=== PATIENT | female | born 1950 | race Caucasian/White ===

== ENCOUNTER 2020-09-09 14:56 | Outpatient (CLI) | payer MEDICARE, OTHER, SELFPAY ==
--- NOTE | 2020-09-09 15:05 | MR_ITS ---
WS: [id number] MRI LUMBAR SPINE NONCONTRAST TECHNIQUE: Sagittal T1, T2 and STIR imaging. Axial T1 and T2 imaging. CLINICAL INFORMATION: BACK PAIN/SCIATICA COMPARISON: None. FINDINGS: Mild lumbar curve. No acute compression. Severe central canal stenosis L3-4 due to minimal disc bulgi ng with facet arthropathy and ligamentum flavum hypertrophy. Addition bilateral synovial cysts at thi s level contribute to central canal and subarticular recess stenosis. Left synovial cyst measures 6 m m and right synovial cyst measures 4.7 mm. L1-L2: Normal. L2-L3: Mild disc bulging. Moderate facet arthropathy. Slight narrowing of the subarticular recess riccardo aterally. Spinal canal and foramen are patent. L3-L4: Severe central canal stenosis due to disc bulging with moderate facet arthropathy ligamentum f lavum hypertrophy. Impingement traversing L4 nerve roots. Synovial cysts contribute to stenosis descr ibed above. Mild right and no significant left foraminal narrowing. L4-L5: Slight anterolisthesis L4 on L5. Mild disc bulging with impingement traversing left L5 nerve r oot. Recommend correlation for left L5 nerve root symptoms. Moderate central canal stenosis. Moderate to advanced facet arthropathy. Foramen are patent. L5-S1: Mild annular bulging with slight effacement of ventral thecal sac. Spinal canal and foramen ar e patent. Mild facet arthropathy. Visualized pelvic bony structures: Normal. Paravertebral soft tissues: Normal. MR/MR lumbar spine wo con* [id number] IMPRESSION: 1. Mild lumbar curve. No acute compression. 2. Severe central canal stenosis L3-4 due to minimal disc bulging with facet a rthropathy and ligamentum flavum hypertrophy. Small bilateral synovial cysts co ntributes to stenosis described above. 3. Mild central canal stenosis L2-3 and moderate central canal stenosis L4-5. Impingement left L4-5 subarticular recess and traversing left L5 nerve root.
== END 2020-09-09 14:57 | disposition home or self-care (01) ==
LOC: RADWPI 15:01
PROVIDERS: PCP Nurse Practitioner Family; Visit Provider Nurse Practitioner Family
DX: M54.30 Sciatica, unspecified side (principal); M48.061 Spinal stenosis, lumbar region without neurogenic claudication; M71.38 Other bursal cyst, other site
CPT/HCPCS: 72148

== ENCOUNTER 2021-05-12 07:45 | Outpatient (CLI) | payer MEDICARE, OTHER, SELFPAY ==
--- NOTE | 2021-05-12 07:54 | MM_ITS ---
WS: [id number] Exam: [place] [id number] Date/Time of Exam: 05/12/2021 7:59 AM Reason For Exam: SCREENING VIEWS: MLO and CC views both breasts. Comparison made with prior exam of 05/12/2015, 11/06/2017, and 04/19/2019.. Findings: There was no sign of mass, architectural distortion or suspicious calcification in either breast. Fa tty MM/[place] [id number] Impression: BI-RADS: 2-Benign FOLLOW-UP: 1 Year Follow-up This mammogram was also analyzed by the Computer Aided Detection System R2 Imag e [employer].
--- NOTE | 2021-05-12 08:23 | XR_ITS ---
WS: [id number] DEXA (DUAL ENERGY X-RAY ABSORPTIOMETRY) Bone mineral density was performed using a [employer] machine. HISTORY: MENOPAUSE, POST MENOPAUSAL COMPARISON: None available. Lumbar spine BMD (L1-L4): 1.212 g/cm2 T score: 0.3 Z score: 1.9 Total hip BMD: Left: 0.992 g/cm2. T score: -0.1 Z score: 1.3 Right: 0.974 g/cm2. T score: -0.3 Z score: 1.1 10 year probability of a major osteoporotic fracture is 9%. XR/XR DEXA axial skeleton* [id number] IMPRESSION: NORMAL BONE MINERAL DENSITY based upon the WHO classification for females.
== END 2021-05-12 07:46 | disposition home or self-care (01) ==
LOC: RADSHAW 07:53
PROVIDERS: PCP Nurse Practitioner Family; Visit Provider Nurse Practitioner Family
DX: Z12.31 Encounter for screening mammogram for malignant neoplasm of breast (principal); Z78.0 Asymptomatic menopausal state
CPT/HCPCS: 77067; 77080

== ENCOUNTER 2022-03-15 11:10 | Outpatient (CLI) | payer MEDICARE, OTHER, SELFPAY ==
--- NOTE | 2022-03-15 11:26 | XR_ITS ---
WS: [id number] LEFT KNEE: 3 VIEW(S) TECHNIQUE: AP, oblique(s) and lateral. HISTORY: ACUTE PAIN OF LEFT KNEE COMPARISON: None available. No fracture or dislocation. Mild narrowing of the patellofemoral and medial compartments with small marginal osteophytes. No joint effusion. No soft tissue abnormality. XR/XR knee LT 3V* [id number] IMPRESSION: Mild patellofemoral and medial compartment osteoarthritic changes.
== END 2022-03-15 11:11 | disposition home or self-care (01) ==
LOC: RAD 11:14
PROVIDERS: PCP Nurse Practitioner Family; Visit Provider Nurse Practitioner Family
DX: M25.562 Pain in left knee (principal)
CPT/HCPCS: 73562

== ENCOUNTER → 2022-05-02 09:39 | Outpatient (BNVA) | payer MEDICARE, OTHER, SELFPAY | PROVIDERS: PCP Nurse Practitioner Family; Referring Provider Nurse Practitioner Family; Visit Provider Student in an Organized Health Care Education/Training Program | DX: M17.12 Unilateral primary osteoarthritis, left knee (principal); E11.9 Type 2 diabetes mellitus without complications; Z79.84 Long term (current) use of oral hypoglycemic drugs; M25.562 Pain in left knee | CPT/HCPCS: 20610; 73560; 73565; 99203; J3301 ==

== ENCOUNTER → 2022-06-13 07:49 | Outpatient (BNVA) | payer MEDICARE, OTHER, SELFPAY | PROVIDERS: PCP Nurse Practitioner Family; Visit Provider Student in an Organized Health Care Education/Training Program | DX: M17.12 Unilateral primary osteoarthritis, left knee (principal) | CPT/HCPCS: 99213 ==

== ENCOUNTER → 2022-11-24 07:37 | Outpatient (BNVA) | payer MEDICARE, OTHER, SELFPAY | PROVIDERS: PCP Nurse Practitioner Family; Visit Provider Student in an Organized Health Care Education/Training Program | DX: M17.12 Unilateral primary osteoarthritis, left knee (principal); Z71.89 Other specified counseling | CPT/HCPCS: 20610; 99214; J7326 ==

== ENCOUNTER → 2023-02-23 07:51 | Outpatient (BNVA) | payer MEDICARE, OTHER, SELFPAY | PROVIDERS: PCP Nurse Practitioner Family; Visit Provider Student in an Organized Health Care Education/Training Program | DX: M17.12 Unilateral primary osteoarthritis, left knee (principal) | CPT/HCPCS: 99213 ==

== ENCOUNTER 2023-05-01 08:30 | Outpatient (CLI) | payer MEDICARE, OTHER, SELFPAY ==
--- NOTE | 2023-05-01 08:36 | MM_ITS ---
WS: [id number] SCREENING DIGITAL TOMOSYNTHESIS MAMMOGRAM WITH CAD HISTORY: SCREENING COMPARISON: 05/12/2021 and 04/19/2019 Bilateral CC and MLO with tomosynthesis views submitted. Synthetic mammography reviewed. Computer aid ed detection analyzed. Breast composition: There are scattered areas of fibroglandular density. No suspicious masses, microc alcifications or architectural distortion. Benign arterial calcifications in each breast. IMPRESSION: MM/[place] [id number] BI-RADS: 2-Benign FOLLOW UP: 1 Year Follow-up
== END 2023-05-01 08:31 | disposition home or self-care (01) ==
LOC: RAD 08:33 → MOBLMAM 08:35
PROVIDERS: PCP Nurse Practitioner Family; Visit Provider Nurse Practitioner Family
DX: Z12.31 Encounter for screening mammogram for malignant neoplasm of breast (principal)
CPT/HCPCS: 77063; 77067

== ENCOUNTER → 2023-05-30 09:14 | Outpatient (BNVA) | payer MEDICARE, OTHER, SELFPAY | PROVIDERS: PCP Nurse Practitioner Family; Visit Provider Student in an Organized Health Care Education/Training Program | DX: M17.12 Unilateral primary osteoarthritis, left knee (principal) | CPT/HCPCS: 20610; 99213; J7318 ==

== ENCOUNTER → 2023-12-05 09:22 | Outpatient (BNVA) | payer MEDICARE, OTHER, SELFPAY | PROVIDERS: PCP Nurse Practitioner Family; Visit Provider Student in an Organized Health Care Education/Training Program | DX: M17.12 Unilateral primary osteoarthritis, left knee (principal) | CPT/HCPCS: 20610; 73560; 73565; 99213; J3301 ==

== ENCOUNTER → 2024-02-20 14:03 | Outpatient (BNVA) | payer MEDICARE, OTHER, SELFPAY | PROVIDERS: PCP Nurse Practitioner Family; Visit Provider Student in an Organized Health Care Education/Training Program | DX: M17.12 Unilateral primary osteoarthritis, left knee (principal) | CPT/HCPCS: 99214 ==

== ENCOUNTER → 2024-04-23 14:35 | Outpatient (BNVA) | payer MEDICARE, OTHER, SELFPAY | PROVIDERS: PCP Nurse Practitioner Family; Visit Provider Student in an Organized Health Care Education/Training Program | DX: M17.12 Unilateral primary osteoarthritis, left knee (principal); M25.562 Pain in left knee; M25.561 Pain in right knee | CPT/HCPCS: 73560; 73565 ==

== ENCOUNTER 2024-05-13 09:30 | Outpatient (CLI) | payer MEDICARE, SELFPAY ==
--- NOTE | 2024-05-13 09:00 | CT_ITS ---
WS: [id number] CT LEFT knee, noncontrast HISTORY: M17.12 - Unilateral primary osteoarthritis, left knee TECHNIQUE: Protocol for [facility] total knee replacement has been obtained. This includes axial imaging th rough the LEFT hip, LEFT knee and LEFT ankle. DLP: 783.44 mGy.cm COMPARISON: Radiograph 04/23/2024 Pelvis: No bone destruction. Mild narrowing of the hip joints. LEFT knee: Mild tricompartment osteoarthritis. No destructive bone lesions. Well-circumscribed calcif ications posterior to the knee joint. These may be loose bodies. Negative RIGHT ankle. CT/CT knee LT [facility] [id number] IMPRESSION: CT imaging provided for [facility] robotic total knee replacement.
== END 2024-05-13 09:31 | disposition home or self-care (01) ==
PROVIDERS: PCP Nurse Practitioner Family; Visit Provider Student in an Organized Health Care Education/Training Program
DX: M17.12 Unilateral primary osteoarthritis, left knee (principal); Z01.818 Encounter for other preprocedural examination; E11.9 Type 2 diabetes mellitus without complications
CPT/HCPCS: 36415; 73700; 80053; 81003; 81015; 83036; 85025; 87086

== ENCOUNTER 2024-05-13 11:51 | Outpatient (CLI) | payer MEDICARE, OTHER, SELFPAY ==
[2024-05-13 12:29] LABS: Charge for UA Resulting for Rev
[2024-05-13 12:33] LABS: Basophils # 0.1 10^3/uL (0.0-0.1); Basophils % 0.9 %; Eosinophils # 0.2 10^3/uL (0.0-0.8); Eosinophils % 2.4 %; Hematocrit 41.1 % (36-47); Lymphocytes # 2.6 10^3/uL (0.8-4.8); Lymphocytes % 32.9 %; Mean Corpuscular HGB Conc 34.1 g/dL (30-55); Mean Corpuscular Hemoglobin 31.1 pg (27-33); Mean Corpuscular Volume 91.3 fl (85-98); Mean Platelet Volume 8.7 fL (7.4-10.4); Monocytes # 0.6 10^3/uL (0.2-0.9); Monocytes % 7.4 %; Neutrophils # 4.52 10^3/uL (1.8-7.7); Neutrophils % 56.3 %; Nucleated Red Blood Cells % 0 %; Platelet Count 319 10^3/cmm (157-399); Red Cell Distribution Width 11.4 % (12.1-15.1); White Blood Count 8.02 10^3/uL (3.29-11.43)
[2024-05-13 12:35] LABS: Bilirubin Urine Negative (Negative); Blood Urine Negative (Negative); Glucose Urine UA Negative (Normal); Ketones Urine Negative (Negative); Leukocyte Esterase Urine Trace (Negative); Nitrate Urine Positive (Negative); Protein Urine Negative (Negative); Specific Gravity, Urine 1.015 (1.005-1.030); Urine Appearance Clear (CLEAR); Urine Color Yellow (Yellow); pH Urine 5.5 (5-7)
[2024-05-13 12:37] LABS: Bacteria Urine 4+ /hpf; Hyaline Casts Urine 0.81 /lpf; RBC Urine 0-2 /hpf (0-2); Squamous Epithelial Cell Urine 0-5 /hpf (0-5)
[2024-05-13 12:50] LABS: Add Urine Culture? Yes
[2024-05-13 12:57] LABS: Estmated Average Glucose 180; Hemoglobin A1C 7.9 % (4.0-6.0)
[2024-05-13 12:59] LABS: Alanine Aminotransferase 25 U/L (0-33); Albumin Level 4.4 g/dL (3.5-5.2); Alkaline Phosphatase 59 U/L (35-105); Anion Gap 14.8 (5-19); Aspartate Amino Transferase 19 U/L (0-32); Blood Urea Nitrogen 13 mg/dL (8-23); Calcium 9.7 mg/dL (8.5-10.5); Carbon Dioxide 28 mmol/L (22-29); Chloride 98 mmol/L (98-107); Globulin 2.8 g/dL (1.3-4.6); Glucose 193 mg/dL (65-115); Osmolality Calculated 287 mOsm/kg (285-295); Potassium 4.8 mmol/L (3.5-5.1); Sodium 136 mmol/L (136-145); Total Bilirubin 0.5 mg/dL (0.15-1.2); Total Protein 7.2 g/dL (6.6-8.7)
== END 2024-05-13 11:52 | disposition home or self-care (01) ==
LOC: LAB 11:52
PROVIDERS: PCP Nurse Practitioner Family; Visit Provider Student in an Organized Health Care Education/Training Program
DX: Z01.818 Encounter for other preprocedural examination (principal); E11.9 Type 2 diabetes mellitus without complications
CPT/HCPCS: 36415; 80053; 81003; 81015; 83036; 85025; 87086

== ENCOUNTER → 2024-05-21 08:14 | Outpatient (BNVA) | payer MEDICARE, OTHER, SELFPAY | PROVIDERS: PCP Nurse Practitioner Family; Visit Provider Family Medicine | DX: Z01.818 Encounter for other preprocedural examination (principal); I49.8 Other specified cardiac arrhythmias; I45.10 Unspecified right bundle-branch block | CPT/HCPCS: 93005 ==

== ENCOUNTER 2024-05-24 13:52 | Outpatient (CLI) | payer MEDICARE, OTHER, SELFPAY ==
[2024-05-24 14:19] LABS: Bilirubin Urine Negative (Negative); Blood Urine Negative (Negative); Glucose Urine UA Negative (Normal); Ketones Urine Negative (Negative); Leukocyte Esterase Urine 1+ (Negative); Nitrate Urine Negative (Negative); Protein Urine Negative (Negative); Specific Gravity, Urine 1.019 (1.005-1.030); Urine Appearance Cloudy (CLEAR); Urine Color Yellow (Yellow)
[2024-05-24 14:45] LABS: Add Urine Culture? No; Bacteria Urine 1+ /hpf; RBC Urine RARE /hpf (0-2)
== END 2024-05-24 13:53 | disposition home or self-care (01) ==
LOC: LAB 13:53
PROVIDERS: PCP Nurse Practitioner Family; Visit Provider Family Medicine
DX: Z01.818 Encounter for other preprocedural examination (principal)
CPT/HCPCS: 81001

== ENCOUNTER 2024-05-27 17:30 | Inpatient (IN) | payer MEDICARE, OTHER, SELFPAY ==
[2024-05-27] VITALS (14 sets, daily range): BP systolic 123–177; BP diastolic 68–92; PULSE 68–96; RESP 16–20; TEMP 36.4–36.9; O2SAT 94–97; BMI 26.9
--- NOTE | 2024-05-27 | XR_ITS ---
WS: [id number] XR knee LT 4V [id number] REASON FOR EXAM: ADDITIONAL POST OPERATIVE IMAGES FINDINGS: Total left knee arthroplasty. Prosthetic components are intact and in proper position and alignment. XR/XR knee LT 4V [id number] IMPRESSION: Total left knee arthroplasty without abnormality.
[2024-05-27 12:54] LABS: Charge for UA Resulting for Rev
[2024-05-27 12:56] LABS: Bilirubin Urine Negative (Negative); Blood Urine Negative (Negative); Glucose Urine UA Negative (Normal); Ketones Urine Negative (Negative); Leukocyte Esterase Urine Negative (Negative); Nitrate Urine Negative (Negative); Protein Urine Trace (Negative); Specific Gravity, Urine 1.017 (1.005-1.030); Urine Appearance Cloudy (CLEAR); Urine Color Yellow (Yellow); pH Urine 5.5 (5-7)
[2024-05-27 13:00] LABS: Bacteria Urine None Seen /hpf; Hyaline Casts Urine 0-4 /lpf; RBC Urine 0-2 /hpf (0-2); Squamous Epithelial Cell Urine 0-5 /hpf (0-5); WBC Urine 0-5 /hpf (0-5)
[2024-05-27] MEDS: acetaminophen 1,000 MG/100 ML PIGGYBACK 400 MG IV ×2 (13:03→21:17)
[2024-05-27 13:16] LABS: Basophils # 0.1 10^3/uL (0.0-0.1); Basophils % 1.6 %; Eosinophils # 0.2 10^3/uL (0.0-0.8); Hematocrit 41.2 % (36-47); Lymphocytes # 2.6 10^3/uL (0.8-4.8); Lymphocytes % 40.9 %; Mean Corpuscular HGB Conc 34.5 g/dL (30-55); Mean Corpuscular Hemoglobin 30.8 pg (27-33); Mean Corpuscular Volume 89.4 fl (85-98); Mean Platelet Volume 8.6 fL (7.4-10.4); Monocytes # 0.9 10^3/uL (0.2-0.9); Monocytes % 13.7 %; Neutrophils # 2.53 10^3/uL (1.8-7.7); Neutrophils % 40.5 %; Nucleated Red Blood Cells % 0 %; Platelet Count 333 10^3/cmm (157-399); Red Blood Count 4.61 10^6/uL (3.85-5.65); Red Cell Distribution Width 11.7 % (12.1-15.1); White Blood Count 6.26 10^3/uL (3.29-11.43)
--- NOTE | 2024-05-27 13:21 | P.ANESASSM_ITS ---
Pre-Anesthetic Assessment Height/Weight: Height 1.5 m Weight 60.328 kg Temp Pulse Resp BP Pulse Ox O2 Del Method 98 F 68 16 177/83 97 Room Air 05/27/24 12:30 05/27/24 12:30 05/27/24 12:30 05/27/24 12:30 05/27/24 12:30 05/27/24 12:38 Preop Diagnosis: left knee degenerative joint disease Operation Date: 05/27/24 14:45 Proposed Procedures p Russell Robot Total Knee Arthroplasty(Left) - Cesar Partida DO Familial anesthetic complications: none Was Beta Barrett taken within 24 hours: N/A Was Clonidine taken within 24 hours: N/A Last intake: Intake Last Liquid Date 05/26/24 Last Liquid Time 21:00 Last Solid Date 05/26/24 Last Solid Time 19:00 Social No alcohol and No tobacco Exam alert, oriented x 3, clear to auscultation bilaterally and regular rate & rhythm Airway Submandibular: within normal limits Cervical ROM: within normal limits Mallampati: Class II Dentition: full History/ROS No significant history except as noted Pulmonary None reported 4 mets CV/HEM Hypertension None reported Hepatic None reported GI None reported Metabolic Diabetes Mellitus NIDDM [facility] Osteoarthritis/DJD Neuropsych None reported Anesthetic Plan ASA status: 3 Anesthesia: Eval. for regional block Other: Spinal with adductor canal block Risk of > 500 ml blood loss (7ml/kg in children): No Medications/Allergies Home Medications Medication Instructions Recorded Confirmed Last Taken Type acetaminophen 300 mg-codeine 30 mg 1 tab PO BID PRN Pain 10/31/19 05/24/24 Unknown History tablet (Tylenol-Codeine #3) alprazolam 1 mg tablet 1 mg PO DAILY PRN Anxiety 10/31/19 05/24/24 05/26/24 History glipizide 10 mg tablet 10 mg PO TID 10/31/19 05/24/24 05/26/24 History metformin 500 mg tablet 1,000 mg PO BID 10/31/19 05/24/24 05/26/24 History chlorzoxazone 500 mg tablet 500 mg PO TID 05/30/23 05/27/24 05/26/24 History levothyroxine 100 mcg tablet 100 mcg PO DAILY 05/21/24 05/24/24 05/27/24 History losartan 50 mg tablet 50 mg PO DAILY 05/21/24 05/24/24 05/26/24 History lovastatin 20 mg tablet 20 mg PO DAILY 05/21/24 05/24/24 05/24/24 History metoprolol succinate 100 mg 100 mg PO DAILY 05/21/24 05/24/24 05/23/24 History tablet,extended release 24 hr sulfamethoxazole 800 1 tab PO BID 5 days #10 tabs 05/21/24 05/24/24 05/24/24 Rx mg-trimethoprim 160 mg tablet (Bactrim DS) Allergies Allergy/AdvReac Type Severity Reaction Status Date / Time levofloxacin Allergy hives Verified 05/21/24 08:46 naproxen [From Aleve] Allergy hives Verified 05/21/24 08:45 Penicillins Allergy hive Verified 05/21/24 08:45 [facility] Anesthesia Medical History Degenerative joint disease of left knee Hypothyroidism Hypertension Type 2 diabetes mellitus Surgical History History of hysterectomy (~1983) Patient reports was due to an class V Pap. Hx of tubal ligation (~1969) Family History Mother Cancer colon cancer Father Cancer colon cancer Hypertension Thyroid disease Daughter Thyroid disease Social History Smoking and tobacco/nicotine status: never used tobacco/nicotine Alcohol intake: current Alcohol intake frequency: holidays/special occasions only Substance/Drug Use: never Data Anesthesia 05/27/24 13:05 05/27/24 13:05 Short CBC 05/27/24 Range/Units 13:05 WBC 6.26 (3.29-11.43) 10^3/uL Hgb 14.20 (11.27-16.99) g/dL Hct 41.2 (36-47) % MCV 89.4 (85-98) fl Plt Count 333 (157-399) 10^3/cmm Neut % (Auto) 40.5 % Neut # (Auto) 2.53 (1.8-7.7) 10^3/uL Urine 05/27/24 Range/Units 12:45 Urine Color Yellow (Yellow) Urine Appearance Cloudy A (CLEAR) Urine pH 5.5 (5-7) Ur Specific [place] 1.017 (1.005-1.030) Urine Protein Trace A (Negative) Urine Glucose (UA) Negative (Normal) Urine Ketones Negative (Negative) Urine Nitrate Negative (Negative) Urine Bilirubin Negative (Negative) Ur Leukocyte Esterase Negative (Negative) Cardiac Studies: 2 No Data to Display
[2024-05-27 13:25] LABS: UA Slide Review UA Slide Review Perf
[2024-05-27] MEDS: vancomycin 1,000 MG in sodium chloride 0.9% 250 ML 250 MG IV (13:30)
--- NOTE | 2024-05-27 13:31 | W.PM.OPSFHP ---
Same Day Surgery H&P Indication for Procedure/HPI DATE OF PROCEDURE: May 27, 2024 CHIEF COMPLAINT/INDICATIONFOR SURGICAL PROCEDURE: Left knee degenerative joint disease PREOP DIAGNOSIS: left knee degenerative joint disease PLANNED PROCEDURE: Operation Date: 05/27/24 14:45 Proposed Procedures p Russell Robot Total Knee Arthroplasty(Left) - Cesar Partida DO Medications/Allergies* Home Medications Medication Instructions Recorded Confirmed Type acetaminophen 300 mg-codeine 30 mg 1 tab PO BID PRN Pain 10/31/19 05/24/24 History tablet (Tylenol-Codeine #3) alprazolam 1 mg tablet 1 mg PO DAILY PRN Anxiety 10/31/19 05/24/24 History glipizide 10 mg tablet 10 mg PO TID 10/31/19 05/24/24 History metformin 500 mg tablet 1,000 mg PO BID 10/31/19 05/24/24 History chlorzoxazone 500 mg tablet 500 mg PO TID 05/30/23 05/27/24 History levothyroxine 100 mcg tablet 100 mcg PO DAILY 05/21/24 05/24/24 History losartan 50 mg tablet 50 mg PO DAILY 05/21/24 05/24/24 History lovastatin 20 mg tablet 20 mg PO DAILY 05/21/24 05/24/24 History metoprolol succinate 100 mg 100 mg PO DAILY 05/21/24 05/24/24 History tablet,extended release 24 hr Allergies/Adverse Reactions Allergy/AdvReac Type Severity Reaction Status Date / Time levofloxacin Allergy hives Verified 05/21/24 08:46 naproxen [From Aleve] Allergy hives Verified 05/21/24 08:45 Penicillins Allergy hive Verified 05/21/24 08:45 Pertinent History/Comorbid Conditions* Medical History (Updated 05/02/22 @ 15:55 by Cesar Partida DO) Degenerative joint disease of left knee Hypothyroidism Hypertension Type 2 diabetes mellitus Surgical History (Updated 11/04/19 @ 18:47 by Marco Grier MD) History of hysterectomy (~1983) Patient reports was due to an class V Pap. Hx of tubal ligation (~1969) Family History (Updated 10/31/19 @ 10:31 by Lucinda Irvin LPN) Cancer Mother colon cancer Father colon cancer Hypertension Father Thyroid disease Father Daughter Social History Smoking and tobacco/nicotine status: never used tobacco/nicotine Alcohol intake: current Alcohol intake frequency: holidays/special occasions only Substance/Drug Use: never Pertinent Exam Findings alert, oriented x 3, operative site marked and procedure specific exam findings Please refer to detailed orthopedic examination on 04/23/2024: Orthopedic specific examination : Left knee there are no gross deformities of the hips or ankles. The range of motion of both hips and ankles are normal and no tenderness to palpation. mild left knee effusion. tenderness to palpation over the medial and lateral compartment. Patient has full range of motion of the left knee with crepitation noted. Tenderness to palpation over the retropatellar space with significant crepitus underneath the patella and positive patellar grind negative Feliz's, negative Shayy's but pain noted no palpable click. Stable to varus valgus stress. 5 degree varus deformity correctable on examination, left lower extremity is warm and well-perfused. Gross motor and sensation intact light touch left lower extremity. Recommendations Surgery/Procedure today Other Plans: Plan to proceed to the OR today for left total knee arthroplasty?Russell robotic assisted. Patient at this point time is clear the preoperative clearance process her A1c is 7.9 and below 8. Her blood sugars controlled this morning. Her UA has been rechecked as she was treated for a UTI and the recheck was with a Fragoso catheterization and UA is clean and free of any UTI. At this point in time patient understands the ins and outs procedure risk benefits complication alternatives of surgery through shared decision-making she is been medically optimized and elects to proceed with surgical intervention for left total knee arthroplasty Russell robotic assisted. Patient understands and agrees with current plan. Questions answered. Coding Level of Care Code Acute Code for Theodorag Von
--- NOTE | 2024-05-27 13:45 | ANES.PROC ---
Anesthesia Procedures Procedure/Date: 05/27/24 Nerve Block ^: Nerve Block 1: Main Anesthesia: spinal anesthesia block Time Out Performed: Yes Consent: requested by attending/covering physician, from patient, from other, risks and benefits reviewed and patient agrees to proceed Nerve block location: adductor canal (L) Anesthesia monitors applied: pulse oximetry, EKG, BP cuff and oxygen Nerve block position: supine Anesthetic Used: ropivicaine 0.5% (30 ml) and with decadron (4 mg) Ultrasound used to: recognize landmarks Nerve Stimulator Used?: No Interscalene/Femoral BLK: 4 stimuplex 21 g needle used for position and inplane approach, visualize local anesthetic spread and no vascular puncture identified Injection: neg aspiration of heme Patient Tolerated Procedure: well Complications: none
[2024-05-27 14:11] LABS: Anion Gap 15.2 (5-19); Blood Urea Nitrogen 15 mg/dL (8-23); Carbon Dioxide 25 mmol/L (22-29); Chloride 96 mmol/L (98-107); Creatinine Clr Calc Pharmacy 60.5375; Glucose 183 mg/dL (65-115); Osmolality Calculated 278 mOsm/kg (285-295); Potassium 5.2 mmol/L (3.5-5.1); Sodium 131 mmol/L (136-145)
[2024-05-27] MEDS: sodium chloride 0.9% 1,000 ML 30 ML IV (14:18)
[2024-05-27] MEDS: tranexamic acid 1,000 mg/10mL SDV 1000 MG IV (14:20)
[2024-05-27] MEDS: ROPivacaine 0.2% Premix 100 mL 200 MG INTRA-ARTI (14:44)
[2024-05-27] MEDS: EPINEPHrine 1 mg/mL INJ XX (14:44)
[2024-05-27] MEDS: tranexamic acid 1,000 mg/10mL SDV 1000 MG XX (14:44)
[2024-05-27] MEDS: ketorolac 30 mg/mL INJ XX (14:44)
[2024-05-27] MEDS: vancomycin 1,000 MG SDV 1000 MG XX (14:47)
[2024-05-27] MEDS: clindamycin 900 MG/50 ML PREMIX 100 MG IV ×2 (14:48→23:20)
--- NOTE | 2024-05-27 15:26 | XR_ITS ---
WS: [id number] XR knee LT 3V* [id number] REASON FOR EXAM: PRE OP LT KNEE FINDINGS: Distal femur and proximal tibia ostomy The preparation for total left knee arthroplasty. XR/XR knee LT 3V* [id number] IMPRESSION: Femur and tibial bone preparation for total left knee arthroplasty.
--- NOTE | 2024-05-27 16:35 | PM.OP ---
Operative Report Date of procedure: May 27, 2024 Surgeon: Cesar Partida DO Search Engine Optimization Consultant: Felipe Partida PA-C: PA was necessary for assistance in this case with leg positioning retraction and protection of neurovascular structures as well as assistance in implantation wound closure and dressing application. Procedure: Preoperative diagnosis: Left knee degenerative joint disease Post-op diagnosis: Left knee degenerative joint disease Left proximal tibia intraoperative incomplete fracture Procedure done: Left total knee arthroplasty, cemented?robotic assisted Russell Left proximal tibia open reduction internal fixation Implants: Shanae triathlon size 3 femur CR cemented?left Shanae triathlon size? 2tibia universal baseplate cemented, with extended 50 mm cemented stem Lexington triathlon symmetric patella size 31 mm Lexington triathlon polyethylene 9mm [place] 3.5 mm x 40 mm nonlocking cortical screw Surgeon: Cesar Partida DO Estimated blood?loss: 25 mL Tourniquet 110min IV fluids: 1500 mL Urine output: 150 mL Complications: Intraoperative incomplete proximal tibia fracture of the anterior cortex, prior to implantation this was subsequently clamped lag screw placed and then a longer tibial stem was cemented into place Condition: stable Disposition: floor Brief History: Patient is a 74-year-old female with with chronic?left knee degenerative joint disease.? Patient has been worked up in the outpatient setting in the orthopedic office at this point time through shared decision making given? [id number] arthritis as well as failed conservative treatment, and pt would?like to proceed with a?left total knee arthroplasty.? Through shared decision making elected to proceed with surgical intervention for?left total knee arthroplasty.? We talked about continued conservative treatment and surgical intervention as far as the risk benefits complications alternatives surgical and nonsurgical treatment options.? At this point time understanding patient risks with surgery he agrees to proceed with surgical intervention.? Once again? risk with surgery include but are not?limited to make it better make it worse blood clot, heart attack, stroke, on the table, infection, injury to nerves or vessels, persistent pain, arthrofibrosis, implant failure.? Understanding these risks patient agrees to proceed with surgical intervention consent was obtained in the office.? All questions answered. Procedure: Patient was seen and evaluated in the preoperative holding area.? Consent was reviewed and signed with patient with plan for?left total knee arthroplasty.? All questions answered.? Correct extremity marked.? Patient seen and evaluated by the anesthesia department and once cleared for surgery was taken back to the operative suite.? Patient was placed into a supine position on the OR table.? All bony prominences were well-padded.? Patient was appropriately secured to the bed.? Patient underwent anesthesia per the anesthesia department.? Patient received spinal anesthesia and? Fragoso catheter was placed.? A nonsterile tourniquet was applied to the?left thigh.? At this point in time a final timeout performed.? Patient received appropriate preoperative antibiotics and TXA. Next the?left?lower extremity was then prepped and draped in standard orthopedic fashion. Esmarch tourniquet was used exsanguinate the?left?lower extremity.? Tourniquet was insufflated to 250 mmHg. A standard anterior incision was made over midline of the knee.? Sharp scalpel excision through skin and subcutaneous tissue full-thickness skin flaps were made.? Fascia was elevated off of the extensor retinaculum was stable with medial parapatellar arthrotomy was then made.? The performed standard sequential releases..? Immediately on entry into the joint patient was found to have severe eburnated bone and tricompartmental arthritic changes noted.? With significant osteophyte formation.? Next the the patella was then stuffed and the knee was then flexed.?? Susannah was placed superiorly around the anterior aspect of the femur this was freed of synovium and I subsequently then placed by 2 femur pins to establish my femur arrays for the Russell robot.? These were then placed bicortically and? femur array was then appropriately secured with appropriate visualization.? Next attention was turned towards the tibial rays.? These were then drilled sequentially bicortically in parallel fashion and intraincisional.? I then placed my guide as well as my tibial array on in place.? This was appropriately secured and had excellent visualization with the Russell robot.? Next the tibial checkpoint as well as femur checkpoint were then placed.? At this point time I then subsequently established my head center as well as my medial?lateral malleoli as well as my checkpoints.? Next utilizing standard Russell technology I then mapped out the appropriate points and confirmation points around the femur as well as the tibia in standard fashion.? Once this was then done I then removed all osteophytes in preparation for dynamic testing.? All osteophytes were removed as well as I removed the ACL and the PCL was excised due to its significant tearing and degeneration noted.? At this point time the knee was brought into full extension and we performed our standard evaluation of our gap balancing stressing his?ligaments and extension as well as flexion appropriate adjustments were made to have appropriate gap balancing in both flexion and extension.? This plan for final counts.? We get a preoperative plan evaluating our implants which was a size 3 femur and a size 2 tibia.? Next we brought in the BATTERIES [employer] BANDS robot and sequentially made our femur cuts.? All excess bony cuts were then removed.? Finally we made our tibial cut.? Once this was done a standard PCL retractor was then placed into this position I excised the medial and?lateral meniscus.? The tibial cut was then subsequently removed all excess bony debris was removed.? I then utilized a?lamina supervisor felling bucking and remove the posterior osteophytes.? At this point time sized the tibia and confirmed this was a size 2.? I utilized our blunt probe to establish rotation of tibial implant.? Once this was done I then placed my tibia size 2 trial in appropriate position and then subsequently placed tibial pins to hold this into place placed a size 9 mm poly as well as a size 3 femur which was appropriately impacted in place knee was then subsequently brought into extension. This was found to be tight in extension but symmetrically balanced in flexion as a result I subsequently removed the implants brought back in the robot and cut an additional millimeter off of the distal femur cut and then recapped the 4 cuts along the femur then replaced the size 2 tibia, size 3 femur and a 9 mm poly and the trials were then assessed,? this was stable with varus valgus stress in extension as well as had symmetrical translation when brought into flexion demonstrating symmetrical gaps. I had excellent balance gaps in flexion and extension with varus and valgus stresses.? At this point I was satisfied with these implants these were then verified and opened on the back table size 2 tibia, size 3 femur,? size 9 mm polythickness.? We did confirm appropriate gap balancing and stresses as well as alignment utilizing? BATTERIES [employer] BANDS and were satisfied with this plan.? ?At this point time with my trials in place I then towel clip the patella everted this made appropriate measurements subsequently utilizing freehand technique performed by patellar resurfacing this was confirmed to be appropriate resection and subsequently sized to be a 31 mm symmetric.? My drill peg guides were then clamped and appropriate position and appropriate position in the patella for appropriate tracking and parallel with the joint.? Pegs were drilled trial implant was placed and the knee was then subsequently ranged and found to have excellent patellar tracking.? Femur pegs were then drilled.? All checkpoints as well as guidepins and arrays were removed and appropriate counts made.?Satisfied with our tibial placement rotation I then utilized the keel punch and prepped the tibia.? During my boss ream this was satisfactory and had no issues and was intramedullary when I did the keel punch as I was impacting this there was noticed to be an incomplete fracture along the anterior medial border of the tibia that communicated to the intra-articular pin sites this was apparently likely due to patient's softer bone quality as result I did not want fracture cement extravasation and as a result all the trial implants removed satisfied with these implants. I then brought in fluoroscopic imaging there was no evidence on x-ray of fracture pattern and there was no evidence distally into the shaft or out posteriorly., But this was visible to my eye as a result I utilized a [id number] tenaculum reduction clamp clamp the fracture site closed keeping this with excellent fracture site opposition I then subsequently between the pin sites and staying anterior within the anterior cortex of the bone which was patient given her smaller bone size did have a small cord or I subsequently had open [place] is 3.5mm screw set and then subsequently in lag by technique design drilled and overdrilled and then subsequently measured a single 3.5 mm lag screws this was all patient's bone would accommodate while this was being held and clamped I then subsequently advanced the 3.5 mm appropriately measured screw which was 40 mm advanced this and had good fixation. At this point I left the clamp in place as well as with my screw holding the fracture site as well and then subsequently had my diploma dental assistant mix the cement. At this point time all of our trial implants had been removed.? The wound bed? was thoroughly irrigated and dried and prepped for cementation.? Cement was mixed on the back table.? Once cement was ready this was then covered onto the tibia and the tibial baseplate was then impacted and all excess cement was removed. I did elect to utilize a longer tibial stem and had my diploma dental assistant attach the 50 mm length stem to add fixation distally past the side of the fracture. Next the polyethylene was then impacted into place on the tibial baseplate.? Next cement was placed onto the femur as well as under the femur implants and impacted in to place and all excess cement was extruded and removed.? Knee was taken into full extension? to clear all excess cement was removed.? Warm saline was placed over the joint.? I then towel clip patella and dried for cementation. cemented the patella into place.? This was all clamped and the cement was allowed to cure.? Thorough irrigation performed with pulse?lavage.? I then placed my periarticular injection while the cement was curing.? Once cement cured tenaculum clamp was removed that was holding the fracture there was no evidence of cement extravasation through the fracture site, and the initial incomplete fracture site remained not gapped and excellent closure and fixation through the cementing process. I did bring in fluoroscopic imaging once more time to confirm satisfactory screw placement maintenance of reduction and stable implantation throughout the cementing process and implanting process and there was no evidence of any fracture propagation through the implant. The knee was taken through range of motion and had excellent stability and gaps were balanced in flexion and extension.? Tourniquet was then deflated. hemostasis satisfactory with electrocautery.? Vancomycin powder was placed in the wound bed for infection prophylaxis. Next I then subsequently closed the capsule with Ethibond suture as well as a running strata fix suture.? Knee was then taken through range of motion 20 times.? Next the skin was then closed in?layered fashion of running stratifix sutures of deep and subcutenous tissue and skin.? ?closed in flexion and Prineo glue was then placed over the incision this allowed to cure.? Incision was covered with ministerio, with ABDs soft roll and Gama wrap.? Patient was then awakened from anesthesia and taken to PACU in stable condition. Disposition: Patient taken to PACU in stable condition will be admitted to the floor for pain control PT/OT, will have patient be toe-touch weightbearing left?lower extremity dressing changes as needed, progress to gentle range of motion as tolerated DVT prophylaxis. Pain control. Patient will receive appropriate postoperative antibiotics. patient will be seen today by the internal medicine team for medical management.? Patient will follow up with the office in 2 weeks.? Patient understands agrees with current plan.? All questions answered.
--- NOTE | 2024-05-27 16:35 | W.PM.BPON ---
Date of Procedure: 05/27/2024 Surgeon: Cesar Partida DO Bulk Plant Agent(s): Felipe Partida PA-C Procedure(s) performed: Left total knee arthroplasty?Russell robotic assisted Left proximal tibia open reduction internal fixation Findings of the procedure(s): Patient was found to have severe left knee degenerative joint disease. Underwent procedure had satisfactory trial implantation while prepping of the tibia patient had a incomplete fracture along the anterior cortex due to patient's thin cortices and softer bone quality. At this point in time I then subsequently took x-rays this was not visible through x-ray and did not propagate distal and communicated only to the intra-articular pin sites from the Russell. As a result I at this point in time utilize mini fluoroscopic imaging and subsequently placed a kwskn-yj-zazwu tenaculum reduction clamp to hold the fracture site closed while this was being held and compressed I then subsequently drilled and placed a 3.5 mm lag screw from medial to lateral positioning this was kept significantly anterior in order to stay out of the way of the implant. Was able to place a screw had good fixation with maintenance of fracture site being closed. Then subsequently elected to place a 50 mm stem to the tibial implant for added fixation distally past the send complete fracture site. I subsequently mixed the cement and then subsequently impacted all the final implants without any issues or complications the tenaculum clamp was left in place to hold the fracture site closed and no cement extravasation was noted at all through the fracture site during the implantation indicating satisfactory reduction. At this point in time leg was kept in extension on cement was allowed to cure after placing the femur and patellar implants in place as well as the poly. Once cement was cured I then assessed the fracture site this was well-maintained reduced and no cement extravasation. Stable varus valgus stress in flexion as well as extension there is no evidence of any fracture instability or diastases after implantation. Tenaculum clamp was removed. Patient incision was then close Migdalia dressing applied and taken to PACU in stable condition. Estimated blood loss: 25 mL Specimen(s) removed: Tibia femur and patellar bone cuts removed Post-operative diagnosis: Left knee degenerative joint disease, Intraop left proximal tibia incomplete fracture.
--- NOTE | 2024-05-27 17:04 | XRR_ITS ---
PROCEDURE INFORMATION: Exam: XR Left Knee Exam date and time: 05/27/2024 5:19 PM Age: 74 years old Clinical indication: Device placement; Joint fixation hardware; Prior surgery; Surgery date: Post-operative (0-2 days); Surgery type: Lt tkr; Additional info: Post L tka, do in pacu TECHNIQUE: Imaging protocol: Radiologic exam of the left knee. Views: 1 or 2 views. COMPARISON: CR XR knee LT 4V [id number] 05/27/2024 3:34 PM FINDINGS: Bones/joints: Recently placed left total knee arthroplasty in expected alignment. Soft tissues: Soft tissue swelling and gas within the anterior knee. XR/XR knee LT 1-2V [id number] IMPRESSION: Recently placed left total knee arthroplasty in expected alignment.
--- NOTE | 2024-05-27 17:16 | PM.PACU ---
PACU note Narrative: Patient is a 74-year-old female just underwent a left total knee arthroplasty. Pt transferred to PACU in stable condition. Dressing is dry. pt is awake and alert. pt can wiggle toes and plantarflex and dorsiflex foot. pt able to perform straight leg raise, Femoral nerve intact. Distal pulses are palpable toes are warm and well-perfused. Cap refill is normal and under 2 seconds. Sensation to foot is intact. Pain is controlled. Exam: awake Disposition: admitted
--- NOTE | 2024-05-27 17:40 | ANE.PACU2 ---
Inpatient post-anesthesia follow up: Airway intact: Yes Vital signs: Temperature 98.2 F Pulse Rate 70 Respiratory Rate 96 Blood Pressure 177/77 Pulse Oximetry 96 Oxygen Delivery Me thod Room Air Oxygen Flow Rate Fraction of Inspir ed Oxygen Hydration adequate: Yes Nausea and vomiting: No Pain level: 1 Mental status: Baseline
[2024-05-27] MEDS: lactated ringers 1,000 ML 100 ML IV (18:55)
[2024-05-27] MEDS: chlorhexidine gluconate 0.12% Btl 473 mL 30 ML MUCOUS MEM ×2 (18:56→20:20)
[2024-05-27] MEDS: iron polysaccharide complex 150 mg Capsule PO (18:56)
[2024-05-27] MEDS: calcium carb-vit d 600mg/400unit 1 Tablet 1 EACH PO (18:56)
[2024-05-27] MEDS: mupirocin oint 22 gm 1 APPLIC NASAL (18:56)
[2024-05-27] MEDS: sodium polystyrene sulfonate 15 gm/60 mL Btl PO (18:57)
[2024-05-27] MEDS: oxyCODONE 5 mg IR Tab/Cap PO (20:20)
[2024-05-27] MEDS: tranexamic acid 1,000 MG/100 ML PREMIX 600 MG IV (20:20)
[2024-05-27 21:02] LABS: Glucose Point of Care 287 mg/dL (70-110)
[2024-05-27] MEDS: insulin lispro 100 unit/1 mL SUBCUT (21:25)
[2024-05-27] MEDS: HYDROmorphone 1 mg/mL INJ 1 mL 0.5 MG IVP (21:45)
[2024-05-28] VITALS (15 sets, daily range): BP systolic 139–189; BP diastolic 72–93; PULSE 70–111; RESP 15–96; TEMP 36.8–37.1; O2SAT 94–98
[2024-05-28] MEDS: TRAMadol 50 mg Tablet PO ×3 (01:07→17:37)
[2024-05-28] MEDS: HYDROmorphone 1 mg/mL INJ 1 mL 0.5 MG IVP ×2 (01:43→06:14)
[2024-05-28] MEDS: lactated ringers 1,000 ML 100 ML IV (04:39)
[2024-05-28] MEDS: acetaminophen 1,000 MG/100 ML PIGGYBACK 400 MG IV ×2 (04:40→11:57)
[2024-05-28 04:58] LABS: Basophils # 0.1 10^3/uL (0.0-0.1); Basophils % 0.4 %; Hematocrit 35.7 % (36-47); Lymphocytes # 1.6 10^3/uL (0.8-4.8); Lymphocytes % 13.3 %; Mean Corpuscular HGB Conc 35.3 g/dL (30-55); Mean Corpuscular Hemoglobin 31.4 pg (27-33); Mean Platelet Volume 8.6 fL (7.4-10.4); Monocytes # 0.8 10^3/uL (0.2-0.9); Monocytes % 6.8 %; Neutrophils % 79.1 %; Nucleated Red Blood Cells % 0 %; Platelet Count 301 10^3/cmm (157-399); Red Blood Count 4.01 10^6/uL (3.85-5.65); Red Cell Distribution Width 11.2 % (12.1-15.1); White Blood Count 11.77 10^3/uL (3.29-11.43)
[2024-05-28 05:17] LABS: Blood Urea Nitrogen 10 mg/dL (8-23); Carbon Dioxide 21 mmol/L (22-29); Chloride 95 mmol/L (98-107); Creatinine Clr Calc Pharmacy 58.7162; Glucose 211 mg/dL (65-115); Osmolality Calculated 269 mOsm/kg (285-295); Sodium 127 mmol/L (136-145)
[2024-05-28] MEDS: clindamycin 900 MG/50 ML PREMIX 100 MG IV ×2 (06:08→14:32)
[2024-05-28 06:31] LABS: Glucose Point of Care 211 mg/dL (70-110)
[2024-05-28] MEDS: levothyroxine 100 mcg Tablet PO (07:55)
[2024-05-28] MEDS: sennosides-docusate Tablet 2 TAB PO ×2 (07:55→17:36)
[2024-05-28] MEDS: docusate sodium 100 mg Capsule PO ×2 (07:55→17:36)
[2024-05-28] MEDS: iron polysaccharide complex 150 mg Capsule PO ×2 (07:55→17:36)
[2024-05-28] MEDS: calcium carb-vit d 600mg/400unit 1 Tablet 1 EACH PO ×2 (07:55→17:36)
[2024-05-28] MEDS: multivitamin therapeutic Tablet 1 TAB PO (07:55)
[2024-05-28] MEDS: mupirocin oint 22 gm 1 APPLIC NASAL (07:56)
[2024-05-28] MEDS: apixaban 5 mg Tablet 2.5 MG PO ×2 (07:56→17:37)
[2024-05-28] MEDS: atorvastatin 40 mg Tablet 20 MG PO (07:56)
[2024-05-28] MEDS: chlorhexidine gluconate 0.12% Btl 473 mL 30 ML MUCOUS MEM ×2 (07:56→20:17)
[2024-05-28] MEDS: insulin lispro 100 unit/1 mL SUBCUT ×4 (07:56→20:26)
--- NOTE | 2024-05-28 09:22 | PC.CHAP ---
Pastoral Care Encounter/Spiritual Assessment Type of Contact [] Declined inspector and unloader visit [] Patient/Family/Request visit [] Outpatient visit [] Follow-up visit [] Physician referral [] Code/Alert [] Routine visit [] Staff referral [] Actively dying [] Patient sleeping [] Family support [] [] Out of room [] Palliative care [] [x] Receiving care in room [] Pre-surgical visit [] Trauma [] Long length of stay [] ICU visit [] Other: Relational/Emotional Strength [] Patient feels connected with others/family/visitors/staff [] Distress [] Loneliness/isolation [] Abandonment Spirituality of Patient [] Person of P[place]a [] Attends Faith of their [place] [] Believes in Prayer [] Reads Bible or Baptist materials [] There are Spiritual issues to be addressed Impregnating Tank Operator Interventions [] Prayer [] Active listening [] Non-anxious presence [] Spiritual/emotional support [] Crisis/trauma care [] Spiritual counseling [] Bereavement support [] Provided bereavement packet [] Provided Bible/devotional materials [] Provided toy/stuffed animal, coloring book to patient or family member [] Provided Communion [] Anointing/[place] [] Salvation [] Completed spiritual assessment [] Other: Impact on Illness or Injury [] Angry [] Fearful [] Anxious [] Often cries [] Exhaustion [] Unable to work [] Unable to attend restorationism [] Unable to walk/stand [] Unable to read [] Unable to drive [] Unable to eat/drink [] Unable to sleep [] Unable to be with family [] Patient intubated [] Other: Summary Time spent with patient
[2024-05-28] MEDS: losartan 50 mg Tablet PO (10:19)
[2024-05-28] MEDS: oxyCODONE 5 mg IR Tab/Cap PO ×3 (10:19→20:17)
[2024-05-28] MEDS: ALPRAZolam 0.5 mg Tablet 1 MG PO (10:19)
[2024-05-28] MEDS: metoprolol succinate ER (24 HR) 100 mg Tablet PO (10:19)
--- NOTE | 2024-05-28 10:56 | P.CONIM_ITS ---
Providers/Reason For Consult 2 Consulting Physician/Specialty*: Hospitalist Reason for Consult*: Postop management Attending Physician: Cesar Partida DO Primary Care Provider: Stefani Sandoval APN History of Present Illness History of Present Illness Daisha Moreno is a 74 year old female status post left total knee arthroplasty, hospitalist has been consulted for postoperative management. Patient has history of hypertension takes metoprolol at nighttime and losartan in the morning, postoperatively complaining of pain 7/10. Not been able to do toe-touch bearing weight. Remains hypertensive secondary to pain. On room air. Review of Systems 2 Const: Denies: fever(s) Eyes: Denies: change in vision ENMT: Denies: throat pain Card: Denies: chest pain Resp: Denies: dyspnea GI: Denies: abdominal pain : Denies: flank pain Musc: Denies: neck pain Skin/Breast: Denies: rash Neuro: Denies: headache(s) Medications/Allergies Home Medications Medication Instructions Recorded Confirmed Last Taken Type acetaminophen 300 mg-codeine 30 mg 1 tab PO BID PRN Pain 10/31/19 05/24/24 Unknown History tablet (Tylenol-Codeine #3) alprazolam 1 mg tablet 1 mg PO DAILY PRN Anxiety 10/31/19 05/24/24 05/26/24 History glipizide 10 mg tablet 10 mg PO TID 10/31/19 05/24/24 05/26/24 History metformin 500 mg tablet 1,000 mg PO BID 10/31/19 05/24/24 05/26/24 History chlorzoxazone 500 mg tablet 500 mg PO TID 05/30/23 05/27/24 05/26/24 History levothyroxine 100 mcg tablet 100 mcg PO DAILY 05/21/24 05/24/24 05/27/24 History losartan 50 mg tablet 50 mg PO DAILY 05/21/24 05/24/24 05/26/24 History lovastatin 20 mg tablet 20 mg PO DAILY 05/21/24 05/24/24 05/24/24 History metoprolol succinate 100 mg 100 mg PO DAILY 05/21/24 05/24/24 05/23/24 History tablet,extended release 24 hr sulfamethoxazole 800 1 tab PO BID 5 days #10 tabs 05/21/24 05/24/24 05/24/24 Rx mg-trimethoprim 160 mg tablet (Bactrim DS) Allergies Allergy/AdvReac Type Severity Reaction Status Date / Time levofloxacin Allergy hives Verified 05/21/24 08:46 naproxen [From Aleve] Allergy hives Verified 05/21/24 08:45 Penicillins Allergy hive Verified 05/21/24 08:45 Current Medications Generic Name Dose Route Start Last Admin Trade Name Freq PRN Reason Stop Dose Admin Sodium Chloride 1,000 mls @ 30 mls/hr 05/27/24 12:30 05/27/24 14:56 Sodium Chloride 0.9% IV 05/28/24 12:29 Infused .Q24H ESCOBAR Infusion PFSH Acute 2 PFSH: Medical History Degenerative joint disease of left knee Hypothyroidism Hypertension Type 2 diabetes mellitus Surgical History History of hysterectomy (~1983) Patient reports was due to an class V Pap. Hx of tubal ligation (~1969) Family History Mother Cancer colon cancer Father Cancer colon cancer Hypertension Thyroid disease Daughter Thyroid disease Social History Smoking and tobacco/nicotine status: never used tobacco/nicotine Alcohol intake: current Alcohol intake frequency: holidays/special occasions only Substance/Drug Use: never Vitals/I&O/Wt Last Vital Signs Temp 98.3 F 05/27/24 17:24 Pulse 78 05/27/24 17:24 Resp 20 H 05/27/24 17:24 BP 146/71 05/27/24 17:24 Pulse Ox 95 05/27/24 17:24 O2 Del Method Room Air 05/27/24 17:24 05/27/24 05/27/24 05/27/24 06:59 14:59 22:59 Intake Total 1350 / 1350 550 / 1900 Output Total 175 / 175 Balance 1350 / 1350 375 / 1725 Weight last 48 hrs Weight 60.328 kg Physical Exam 2 Narrative: Patient is sitting in a chair Complaining of pain Hypertensive Currently on room air Pleasant cooperative euvolemic GCS 15 S1, S2 Urinary Catheter Management: Fragoso: Cath Placed During This Visit: yes Urinary Catheter Date of Insertion: 05/27/24 Urinary Catheter Time of Insertion: 12:30 Data 05/28/24 04:31 05/28/24 04:31 A&P Assessment and plan (1) Hypertension: (2) Type 2 diabetes mellitus: (3) Hypothyroidism: (4) S/P total knee arthroplasty: Plan Left knee total arthroplasty Postop day 1 Hypertensive: Could be related to active pain Continue metoprolol and losartan Pain management Continue oxycodone along tramadol I have asked nurse to give Dilaudid this morning continue bowel regimen DVT prophylaxis on board with Tiffany Patient to work with PT today Currently doing well on room air Depending on PT evaluation will make further plan with orthopedics Consult Attestations 2 Medical Necessity Statement: continue medical management Diagnoses Hypertension I10 Type 2 diabetes mellitus E11.9 Hypothyroidism E03.9 S/P total knee arthroplasty Z96.659
[2024-05-28 11:17] LABS: Glucose Point of Care 197 mg/dL (70-110)
--- OUTSIDE RECORDS SUMMARY | 2024-05-28 11:43 | XMS_ITS ---
Author Name Unknown Organization [facility] Address [address] [place] [address] Care Team Providers Care Field Service Manager Name Role Phone Yoav Sandoval Primary Care Provider MARTHA, YOAV Unavailable Unavailable REASON FOR VISIT 1 month f/u Encounters Encounter Location Date Provider Diagnosis [facility] Office [address] [place] [phone] 05/02/2024 Yoav Sandoval Plan Of Treatment No Information Progress Notes * KEKEROLFJabier AscencioSemajOB: [birth year] (74 yo F)Acc No.[id number]:05/02/2024 Progress Notes Patient:?Daisha LAZAR Provider:Kelly Sandoval MAILROOM COORDINATOR :1950???Age:74 Y???Sex:Female D ate:05/02/2024 Address:[address] [place], [place] [phone] Subjective: * Chief Complaints: * ???1. 1 month f/u. * Medical History:? Objective: * Vitals:? Assessment: Plan: * Treatment: * Billing Information: * Visit Code:? * Procedure Codes:? Care Plan Details* * Electronic signature of Reggie Sandoval APN on 05/28/2024 at 11:43 AM CDT Sign off status: Pending * Provider:Kelly aSndoval MAILROOM COORDINATOR Date:?05/02/20 24 Generated for Peter isaacs/Jerrod/eTransmitting on:?05/28/2024 11:43 AM CDT
--- OUTSIDE RECORDS SUMMARY | 2024-05-28 11:43 | XMS_ITS ---
Author Name Unknown Organization [facility] Address [address] [facility] [address] Care Team Providers Care Plastics Heat Welder Name Role Phone Yoav Sandoval Primary Care Provider SANDOVAL, YOAV Unavailable Unavailable REASON FOR VISIT CCM OUTREACH Encounters Encounter Location Date Provider Diagnosis [facility] [address] [facility] [place] [address] 04/18/2024 [facility] Sandoval Plan Of Treatment No Information Progress Notes * Massimo LAZAROB: [birth year] (74 yo F)Acc No.[id number]:04/18/2024 Patient:?CADYJabieron :1950???Age:74 Y???Sex:Female Address:[address] [place] [phone] * true * Date:? Generated for Peter isaacs/Jerrod/eTransmitting on:?05/28/2024 11:43 AM CDT
--- OUTSIDE RECORDS SUMMARY | 2024-05-28 11:44 | XMS_ITS ---
Author Name Unknown Organization [facility] Address [address] [place] [address] Care Team Providers Care Director Card Name Role Phone [facility] Primary Care Provider [facility] Unavailable Unavailable Allergies Allergen (clinical drug ingredient) Drug/Non Drug Allergy documented on EMR Reaction Allergy Type Onset Date Status levofloxacin levoFLOXacin Unknown Drug Allergy A ctive naproxen Naproxen hives Drug Allergy Active Penicillin hives Drug Allergy Active Results Component Value Reference Range Notes Thyroid Stimulating Hormone (TSH) 22448 Reviewed date:03/30/2024 07:37:05 PM Interpretation: Performing Lab: Notes/Report: Diagnosis Description: Hypothyroidism, unspecified TSH .060 .358-3.740 MlU/ML Lipid Panel Reflex DLDL 8006 1, [address]4724 Reviewed date:03/30/2024 07:36:28 PM Interpretation: Performing Lab: Notes/Report: Diagnosis Description: Mixed hyperlipidemia Trig 163 Classification Guidelines:Triglycerides Adults: >20yrs Desirable <150 Borderline High 150-199 High 200-499 Very high >=500 Children: Male 0-4 yr 22-99 5-9 yr 30-101 10-14 yr 32-125 15-19 yr 37-148 Children: Female 0-4 yr 34-112 5-9 yr 32-105 10-14 yr 37-131 15-19 yr 39-132 Chol 153 <=200 MG/DL HDL 38 39-96 MG/DL Reference Ranges:HDL Male: 5-9y 38-75 10-14y 37-74 15-19y 30-63 >=20y 40-59 Female: 5-9y 36-73 10-14y 37-70 15-19y 35-74 >=20y 40-59 CH/HDL 4.1 0.0-4.9 RATIO LDL 83 0-130 MG/DL LDL result is i naccurate , if Trig is >400 mg/dl. See DLDL result. Hemoglobin A1c 24830 Reviewed date:03/30/2024 07:36:48 PM Interpretation: Performing Lab: Notes/Report: Diagnosis Description: Type 2 diabetes mellitus with hyperglycemia Hgb A1c 8.0 3.8-6.4 % Interpretation Of Hgb A1c: 4.5-6.2 % nondiabetics. >7.0 % diabetics. EAG 183 Estimated [place] ge Glucose(EAG). Comprehensive Metabolic Pane l 44821 Reviewed date:03/30/2024 07:38:16 PM Interpretation: Performing Lab: Notes/Report: Diagnosis Description: Essential (primary) hypertension Glucose Serum 170 71-110 MG/DL Testing perfor med at [facility], [address] [place] [address] [place] [address]. CLIA ID#: [id number] BUN 11 7-21 MG/DL Creat .68 .51-1.17 MG/DL O-vollyf-i-benzoquinone imine (NAPQI) is a metabolite of acetaminophen, NAPQI concentrations of apparoximately 10 mg/L correlation to toxic levels of acetaminophen demonstrates a greater than or equil to 10% change in results. NAPQI concentrations greater than this may lead to falsely depressed results for patient samples. Use of this assay is not recommended for patients undergoing treatment with phenindione, due to the potential for falsely depressed results. GFR 92.6 Calculation per formed from GFR calculator provided by the [employer]. Glomerular Filtration rate(GRF) is the best overall index of kidney function. Normal GFR varies according to age,sex, body size, and declines with age. The National [employer] recommends using the CKD-EPI Creatinine Equation(2020) to estimate GFR. BUN/Creat Ratio 16.2 12.0-20.0 % Total Protein 6.7 5.8-8.0 G/DL Albumin 4.4 3.2-4.8 G/DL Globulin 2.2 2.3-3.5 G/DL Alb/Glob 2.0 0.8-2.2 Calcium 9.5 8.7-10.4 MG/DL Sodium 133 136-145 MMOL/L Potassium 5.2 3.5-5.1 MMOL/L Chloride 97 98-107 MMOL/L CO2 27.4 20.0-31.0 MMOL/L Anion Gap 14 5-15 Alk Phos 57 46-116 Bili Total .5 .3-1.2 MG/DL Use of this ass ay is not recommended for patients undergoing treatment with eltrombopag due to the potential for falsely elevated results. AST/SGOT 29 15-37 UNIT/L ALT/SGPT 34 12-78 UNIT/L Osmo Serum,Calculated 279 280-300 MOSM/KG CBC w\ Auto Diff 61262 Reviewed date:03/30/2024 07:39:03 PM Interpretation: Performing Lab: Notes/Report: Diagnosis Description: Essential (primary) hypertension WBC 7.7 4.5-11.0 X10'3 RBC 4.50 4.00-5.20 X10'6 Hgb 14.0 12.0-16.0 G/DL Hct 42.9 36.0-46.0 % MCV 95.3 80.0-100.0 FL MCH 31.1 27.0-31.0 PG MCHC 32.6 31.0-37.0 G/DL Platelet 360 150-400 X10'3 RDW-SD 41.1 35.0-49.0 FL RDW-CV 11.9 12.2-15.6 % MPV 9.1 9.2-12.0 FL Neutro Auto% 55.8 40.0-70.0 % Lymph Auto% 32.6 22.0-44.0 % [place] Auto% 7.8 3.0-7.0 % Eos Auto% 2.5 2.0-4.0 % Baso Auto% 1.0 0.0-1.0 % Imm Gran% .3 .0-.4 % Neutro Abs 4.33 .80-7.70 Absolute Neutrophil Count 4330 Lymph Abs 2.52 .10-4.10 [place] Abs .60 .20-1.00 Eos Abs .19 .00-.40 Baso Abs .08 .00-.20 Imm Gran Abs .02 .00-.10 NRBC# .00 .00-.20 X10'3 NRBC% .00 .00-.20 /100 int act WBC's REASON FOR VISIT Patient to clinic for lab draw and checkup Medications Medication SIG (Take, Route, Frequency, Duration) Notes Start Date End Date Status ALPRAZolam 1 MG 1/2 to 1 tab Orally three times a day prn anxiety for 30 days 03/28/2024 Active Levothyroxine Sodium 100 MCG 1 tab Orally Once a day for 90 days Active Acetaminophen-Codeine 300-30 MG 1 tab Oral q 4 hours prn severe pain for 30 days 03/28/2024 06/26/2024 Active Chlorzoxazone 500 mg 1 tab Orally Three times a day prn muscle spasms for 30 days 06/26/2024 Active glipiZIDE 10 MG 2 tabs Orally twice a day with meal for 90 days Active Metoprolol Succinate ER 100 MG Take 1 tablet by mouth once daily for 90 Active Januvia 100 MG Take 1 tablet by mouth once daily for 30 Not-Taking Janumet 50-500 MG 1 tablet with meals Orally Twice a day for 30 days 09/26/2023 Unknown Losartan Potassium 50 MG TAKE 1 TABLET B Y MOUTH ONCE DAILY REPLACES VALSARTAN for 90 Active metFORMIN HCl 500 MG TAKE 2 TABLETS BY MOUTH TWICE DAILY WITH MEALS for 90 Active Lovastatin 20 MG 1 tab Orally Once a day in evening for 90 days Active Vital Signs Temperature 97.7 degrees Fahrenheit 03/28/20 24 Blood pressure systolic 163 mm Hg 03/28/20 24 Blood pressure diastolic 88 mm Hg 024 Heart Rate 75 /min 03/28/2024 Respiratory Rate 20 /min 03/28/2024 Height 60 in 03/28/2024 Weight 136 lbs 03/28/2024 BMI 26.56 kg/m2 03/28/2024 Oximetry 98 % 03/28/2024 Height-cm 152.4 cm 03/28/2024 Weight-kg 61.69 kg 03/28/2024 Encounters Encounter Location Date Provider Diagnosis [facility] Office [address] [place] [phone] 03/28/2024 Stefani Sandoval Controlled type 2 diabetes mellitus with hyperglycemia, without long-term current use of insulin E11.65 ; Anxiety F41.9 ; Acquired hypothyroidism E03.9 ; Hypertension, unspecified type I10 ; Muscle spasm M62.838 ; Lumbar pain M54.50 and Mixed hyperlipidemia E78.2 Assessments Encounter Date Diagnosis (ICD Code) Assessment Notes Treat ment Notes Treatment Clinical Notes 03/28/2024 Controlled type 2 diabetes mellitus with hyperglycemia, without long-term current use of insulin (ICD-10 - E11.65) ha1c; monitor bs; continue medications 03/28/2024 Anxiety (ICD-10 - F41.9) xanax 03/28/2024 Acquired hypothyroidism (ICD-10 - E03.9) levothyroxine; tsh 03/28/2024 Hypertension, unspecified type (ICD-10 - I10) losartan; monitor bp; cbc cmp 03/28/2024 Muscle spasm (ICD-10 - M62.838) parafon 03/28/2024 Lumbar pain (ICD-10 - M54.50) tylenol #3 03/28/2024 Mixed hyperlipidemia (ICD-10 - E78.2) lovastatin; lipids 03/28/2024 Other Questions asked and answered; discharged to home. Venipuncture: Performed by: Shanae CISNEROS Attempts: x1 Location: RAC Needle gauge: 21G Patient tolerated well. Plan Of Treatment Medication Medication Name Sig Start Date Stop Date Notes ALPRAZolam 1 MG 1/2 to 1 tab Orally three times a day prn anxiety for 30 days 03/28/2024 Acetaminophen-Codeine 300-30 MG 1 tab Or al q 4 hours prn severe pain for 30 days 03/28/2024 06/26/2024 Chlorzoxazone 500 mg 1 tab Orally Three times a day prn muscle spasms for 30 days 06/26/2024 Treatment Notes Assessment Notes Controlled type 2 diabetes m ellitus with hyperglycemia, without long-term current use of insulin ha1c; monitor bs; continue medications Anxiety xanax Acquired hypothyroidism levothyroxine; t sh Hypertension, unspecified type losartan; monitor bp; cbc cmp Muscle spasm parafon Lumbar pain tylenol #3 Mixed hyperlipidemia lovastatin; lipids Other Questions asked and answered; discharged to home. Next Appt Details Follow Up: 4 Weeks, Reason: recheck Progress Notes * Massimo LAZAROB: [birth year] (73 yo F)Acc No.[id number]:03/28/2024 Progress Notes Patient:?Daisha LAZAR Provider:?Stefani Sandoval APRN :1950???Age:73 Y???Sex:Female D ate:03/28/2024 Address:[address] [place], [place] [phone] Check In:08:59 AM CSTCheck O ut:09:35 AM ASSOCIATE DIRECTOR OF SALES Subjective: * Chief Complaints: * ???Patient to clinic for lab draw and checkup * HPI: ???Provider Note:?patient is an alert 73 year? old female known to practice and here for recheck and medications and refills; diabetes type 2; glipizide was increased last visit in september to 2 bid;? ?janumet was also started at that time? continue to monitor bs;?has tylenol #3 prn severe pain; does have bouts of lumbar pain as well as some problems with knee; will refill; sees ortho for knee? injections have helped in past; states no longer effective and has surgery planned for left knee; has parafon prn muscle spasms;? will refill; complains change in muscle dip in arm left post covid injection and flu shot;? ?janumet was too expensive as was januvia; does use the glipizide and metformin as directed; states januvia really no help anyway when she tried it; discussed wiht patient meds; continue to monitor bs; states has been running in 160 range; trying to lose weight and eat less at night; hypothyroid and takes levothyroxine;? takes xanax prn anxiety and is effective; will conitnue; will draw labs this visit; cbc cmp lipids tsh and ha1c;? discussed with patient diagnosis and treatments; states had total of 2 colonoscopy in past 2009 and one since by dr deleon; [facility] ; called for results; hyperlipidemia and taking lovastatin; will contiue plan; hypertension; taking losartan; discussed with patient monitor bp; states is better at home;??return 1 month and prn. * ROS:?General - Multi System:?Constitutional?Denies, fever, chills, weakness, fatigue, poor appetite, unexplained weight loss.?Ear, Nose, Mouth, Throat?Denies any ear pain, sore throat, sinus congestion, or nasal drainage.? * Medical History:? * C Wpf Developer History:?Date of Last Period?Partial Hyst 1983.? * OB History:? # 1:?[birth year]/05/1971 normal spontaneous vaginal delivery ().? # 2:?06/23/1974 normal spontaneous vaginal delivery ().?Total living children?2.?Total pregnancies?2.? * Surgical History:?tubal liga tion 1974hysterectomy 1983 * Hospitalization/Major Diagno stic Procedure:?childbirth * Family History:?Father: dece ased 82 yrs, congestive heart failure, dementia.?Mother: alive 90 yrs, old age, healthy.?Siblings: ovarian cancer.?Paternal Grand Mother: , ovarian cancer.? * Social History:?Depression screen completed 04/07/2023 score 4 Patient states she has PTSD. * Medications:?TakingAcetamino phen-Codeine 300-30 MG Tablet 1 tab Oral q 4 hours prn severe pain Chlorzoxazone 500 mg Tablet 1 tab Orally Three times a day prn muscle spasms glipiZIDE 10 MG Tablet 2 tabs Orally twice a day with meal ALPRAZolam 1 MG Tablet 1/2 to 1 tab Orally three times a day prn anxiety Levothyroxine Sodium 100 MCG Tablet 1 tab Orally Once a day Lovastatin 20 MG Tablet 1 tab Orally Once a day in evening Losartan Potassium 50 MG Tablet TAKE 1 TABLET BY MOUTH ONCE DAILY REPLACES VALSARTAN metFORMIN HCl 500 MG Tablet TAKE 2 TABLETS BY MOUTH TWICE DAILY WITH MEALS Metoprolol Succinate ER 100 MG Tablet Extended Release 24 Hour Take 1 tablet by mouth once daily Taking Acetaminophen-Codeine 300-30 MG Tablet 1 tab Oral q 4 hours prn severe pain Taking Chlorzoxazone 500 mg Tablet 1 tab Orally Three times a day prn muscle spasms Taking glipiZIDE 10 MG Tablet 2 tabs Orally twice a day with meal Taking ALPRAZolam 1 MG Tablet 1/2 to 1 tab Orally three times a day prn anxiety Taking Levothyroxine Sodium 100 MCG Tablet 1 tab Orally Once a day Taking Lovastatin 20 MG Tablet 1 tab Orally Once a day in evening Taking Losartan Potassium 50 MG Tablet TAKE 1 TABLET BY MOUTH ONCE DAILY REPLACES VALSARTAN Taking metFORMIN HCl 500 MG Tablet TAKE 2 TABLETS BY MOUTH TWICE DAILY WITH MEALS Taking Metoprolol Succinate ER 100 MG Tablet Extended Release 24 Hour Take 1 tablet by mouth once daily Not-TakingJanuvia 100 MG Tablet Take 1 tablet by mouth once daily Not-Taking Januvia 100 MG Tablet Take 1 tablet by mouth once daily UnknownJanumet 50-500 MG Tablet 1 tablet with meals Orally Twice a day Medication List reviewed and reconciled with the patientUnknown Janumet 50-500 MG Tablet 1 tablet with meals Orally Twice a day Medication List reviewed and reconciled with the patient * Allergies:?Penicillin: hives Naproxen: hiveslevoFLOXacinno[Allergies Verified] Objective: * Vitals:?Ht: 60 in, Wt:136lbs , Wt-k.69 kg, BMI:26.56Index, Temp:97.7F, BP: 154/87 mm Hg,163/88mm Hg, HR:75/min, RR:20/min, Oxygen sat %:98%, O2 Source: RA, Pain scale: 4 1-10, Ht-cm: 152.4 cm. * Examination: ???General Examination: ?GENERAL APPEARANCE:?alert, well hydrated, in no distress, converses well.?HEAD:?normocephalic, atraumatic.?EYES:?PERRL; normal conjunctiva.?EARS:?....?NECK/THYROID:?neck supple, full range of motion, no JVD, without thyromegaly or masses.?SKIN:?warm and dry.?HEART:?Regular rate and rhythm, S1 S2 normal.?LUNGS:?clear to auscultation bilaterally, no wheezes, rales, or rhonchi.?MUSCULOSKELETAL:?soft knee brace in place left knee.?EXTREMITIES:?no clubbing, cyanosis, or edema..?NEUROLOGIC:?alert and oriented, cerebellar function normal, cognitive exam grossly normal, gait normal.?PSYCH:?alert, oriented, cognitive function intact, cooperative with exam, good eye contact, mood/affect full range, speech clear.? Assessment: * Assessment: 1.?Controlled type 2 diabete s mellitus with hyperglycemia, without long-term current use of insulin - E11.65 (Primary)?2.?Anxiety - F41.9?3.?Acquired hypothyroidism - E03.9?4.?Hypertension, unspecified type - I10?5.?Muscle spasm - M62.838?6.?Lumbar pain - M54.50?7.?Mixed hyperlipidemia - E78.2? Plan: * Treatment: Notes: ha1c; monitor bs; continue medications??2.?Anxiety? Refill ALPRAZolam Tablet, 1 MG, 1/2 to 1 tab, Orally, three times a day prn anxiety, 30 days, 90, Start Date: 03/28/2024, Refills 2.?? Notes: xanax??3.?Acquired hypothyroidism?LAB: Thyroid Stimulating Hormone (TSH) 34336 (Collection Date & Time - 03/28/2024 10:58 AM)* Stefani Sandoval 03/30/2024 07: 37:00 PM CDT > low Notes: levothyroxine; tsh??4.?Hypertension, unspecified type?LAB: CBC w\ Auto Diff 95641 (Collection Date & Time - 03/28/2024 10:58 AM) * Stefani Sandoval 03/30/2024 07: 39:01 PM CDT > ok ?LAB: Comprehensive Metabolic Panel 78423 (Collection Date & Time - 03/28/2024 10:58 AM)* Stefani Sandoval 03/30/2024 07: 38:11 PM CDT > hyponatremia Notes: losartan; monitor bp; cbc cmp??5.?Muscle spasm? Refill Chlorzoxazone Tablet, 500 mg, 1 tab, Orally, Three times a day prn muscle spasms, 30 days, 45, Stop Date: 06/26/2024, Refills 2.?? Notes: parafon??6.?Lumbar pain? Refill Acetaminophen-Codeine Tablet, 300-30 MG, 1 tab, Oral, q 4 hours prn severe pain, 30 days, 120, Start Date: 03/28/2024, Stop Date: 06/26/2024, Refills 2.?? Notes: tylenol #3??7.?Mixed hyperlipidemia?LAB: Lipid Panel Reflex DLDL 54227, 42804 (Collection Date & Time - 03/28/2024 10:58 AM)* Stefani Sandoval 03/30/2024 07: 36:24 PM CDT > ok Notes: lovastatin; lipids??8.?Others? Notes: Questions asked and answered; discharged to home.?? Clinical Notes:Venipuncture:Performed by: Shanae CISNEROS Attempts: x1 Location: RAC Needle gauge: 21G Patient tolerated well. ? * Procedure Codes:?3079F DIAST BP 80-89 MM [id number] VENIPUNCT, ROUTINE* * Preventive Medicine:? ??Screenings:?As Listed Below?*.?LAST WELLNESS VISIT (if today's visit is wellness, use today's date):?Date:?07/25/2023 ?BREAST CANCER SCREENING:?Prior breast cancer screening:?At [facility] ?Provider recommendation:?schedule Repeat mammograms every 1-2 years. Continue monthly self breast examinations. Report any abnormal findings to provider. ?Date of most recent screening:?05/01/2023 negative ?CERVICAL CANCER SCREENING:?Cancer screening cervical (age 21-64)?Annual pap smear ?Date of the last PAP Smear :?Unsure of date of last pap, Is s/p hysterectomy ?Provider recommendation:?is s/p hysterectomy ?COLORECTAL CANCER SCREENING:?Colorectal screening:?has been completed in the past, was done more than four years ago ?DEPRESSION SCREENING:?The patient denies:?poor appetite, sadness, thoughts of harming him/herself, thought of harming someone else, trouble concentrating, weight gain, weight loss, any depressive symptoms at this time ?Suicidal ideation:?has never been expressed/considered ?Homicidal ideation:?has never been expressed/considered ?PHQ inventory:?was completed today, with score of 0-4 ?Date of most recent screening:?04/07/2023 ?FALL RISK SCREENING?Fall Risk Assessment:?No falls in the past year ?VACCINATIONS:?Is patient's pneumococcal vaccine current??Yes Per patient received pneumonia vaccine at [facility] on 08/03/22 ?Completed vaccinations include:?influenza Influenza on 06/03/2023, Shingles on 10/05/2022 ?Influenza vaccinations:?occur routinely * Follow Up:?4 Weeks (Reason: recheck) * Billing Information: * Visit Code:? 86925 Office Visit, Est Pt., Level 3. * Procedure Codes:? 3079F DIAST BP 80-89 MM HG. 18614 VENIPUNCT, ROUTINE*. Care Plan Details* * Sign off status: Completed true * Provider:?Stfeani Sandoval WHITE LEAD FILTERER Date:?03/28/20 24 Generated for Printi ng/Faxing/eTransmitting on:?05/28/2024 11:43 AM CDT History and Physical Notes * Examination Category Sub-Category Detail Notes General Examination GENERAL APPEARANCE: alert, w ell hydrated, in no distress, converses well HEAD: normocephalic, atrau matic EYES: PERRL; normal conjun ctiva EARS: ... NECK/THYROID: neck supple, full ra nge of motion, no JVD, without thyromegaly or masses HEART: Regular rate and rhy thm, S1 S2 normal LUNGS: clear to auscultatio n bilaterally, no wheezes, rales, or rhonchi NEUROLOGIC: alert and oriented, cerebellar function normal, cognitive exam grossly normal, gait normal SKIN: warm and dry EXTREMITIES: no clubbing, cyanosi s, or edema. MUSCULOSKELETAL: soft knee brace in p lace left knee PSYCH: alert, oriented, cog nitive function intact, cooperative with exam, good eye contact, mood/affect full range, speech clear
--- OUTSIDE RECORDS SUMMARY | 2024-05-28 11:44 | XMS_ITS | Patient Health Record ---
Author Name Unknown Organization [facility] Address [address] [place] [address] Drive [place], [place] [address] Care Team Providers Care Javascript Software Engineer Name Role Phone [facility] Primary Care Provider [place] Unavailable Unavailable Allergies Allergen (clinical drug ingredient) Drug/Non Drug Allergy documented on EMR Reaction Allergy Type Onset Date Status levofloxacin levoFLOXacin Unknown Drug Allergy A ctive naproxen Naproxen hives Drug Allergy Active Penicillin hives Drug Allergy Active Results Component Value Reference Range Notes Hemoglobin A1c 86984 Reviewed date:09/26/2023 08:55:20 PM Interpretation: Performing Lab: Notes/Report: Diagnosis Description: Type 2 diabetes mellitus with hyperglycemia Hgb A1c 8.3 3.8-6.4 % Interpretation Of Hgb A1c: 4.5-6.2 % nondiabetics. >7.0 % diabetics. EAG [address] [place] ge Glucose(EAG). Comprehensive Metabolic Pane l 61869 Reviewed date:09/26/2023 08:55:02 PM Interpretation: Performing Lab: Notes/Report: Diagnosis Description: Essential (primary) hypertension Glucose Serum 242 71-110 MG/DL Testing perfor med at [facility], [address] [place] [address] [place] [address]. CLIA ID#: [id number] BUN 13 7-21 MG/DL Creat .62 .51-1.17 MG/DL Use of this assay is not recommended for patients undergoing treatment with phenindione, due to the potential for falsely depressed results. M-rtcpio-b-benzoquinone imine (NAPQI) is a metabolite of acetaminophen, NAPQI concentrations of apparoximately 10 mg/L correlation to toxic levels of acetaminophen demonstrates a greater than or equil to 10% change in results. NAPQI concentrations greater than this may lead to falsely depressed results for patient samples. GFR 94.9 Calculation per formed from GFR calculator provided by the [employer]. Glomerular Filtration rate(GRF) is the best overall index of kidney function. Normal GFR varies according to age,sex, body size, and declines with age. The National [employer] recommends using the CKD-EPI Creatinine Equation(2009) to estimate GFR. BUN/Creat Ratio 21.0 12.0-20.0 % Total Protein 7.3 5.8-8.0 G/DL Albumin 4.7 3.2-4.8 G/DL Globulin 2.6 2.3-3.5 G/DL Alb/Glob 1.8 0.8-2.2 Calcium 9.8 8.7-10.4 MG/DL Sodium 135 136-145 MMOL/L Potassium 5.2 3.5-5.1 MMOL/L Chloride 101 98-107 MMOL/L CO2 29.7 20.0-31.0 MMOL/L Anion Gap 10 5-15 Alk Phos 63 46-116 Bili Total .6 .3-1.2 MG/DL Use of this ass ay is not recommended for patients undergoing treatment with eltrombopag due to the potential for falsely elevated results. AST/SGOT 38 15-37 UNIT/L ALT/SGPT 57 12-78 UNIT/L Osmo Serum,Calculated 288 280-300 MOSM/KG CBC w\ Auto Diff 92872 Reviewed date:09/26/2023 07:49:08 PM Interpretation: Performing Lab: Notes/Report: Diagnosis Description: Essential (primary) hypertension WBC 7.5 4.5-11.0 X10'3 RBC 4.70 4.00-5.20 X10'6 Hgb 14.5 12.0-16.0 G/DL Hct 44.5 36.0-46.0 % MCV 94.7 80.0-100.0 FL MCH 30.9 27.0-31.0 PG MCHC 32.6 31.0-37.0 G/DL Platelet 414 150-400 X10'3 RDW-SD 43.0 35.0-49.0 FL RDW-CV 12.4 12.2-15.6 % MPV 9.2 9.2-12.0 FL Neutro Auto% 57.7 42.0-75.0 % Lymph Auto% 29.1 20.0-51.0 % Webb Auto% 8.1 1.7-9.3 % Eos Auto% 3.6 .0-6.0 % Baso Auto% 1.2 0.0-1.0 % Imm Gran% .3 .0-.4 % Neutro Abs 4.35 .80-7.70 Absolute Neutrophil Count 4350 Lymph Abs 2.19 .10-4.10 Webb Abs .61 .20-1.00 Eos Abs .27 .00-.40 Baso Abs .09 .00-.10 Imm Gran Abs .02 .00-.10 NRBC# .00 .00-.20 X10'3 NRBC% .00 .00-.20 /100 int act WBC's Uric Acid (B) 19585 Reviewed date:09/26/2023 08:54:34 PM Interpretation: Performing Lab: Notes/Report: Diagnosis Description: Unspecified osteoarthritis, unspecified site Uric Acid 5.4 2.6-6.0 MG/DL Thyroid Stimulating Hormone (TSH) 15166 Reviewed date:09/26/2023 08:54:20 PM Interpretation: Performing Lab: Notes/Report: Diagnosis Description: Hypothyroidism, unspecified TSH .370 .358-3.740 MlU/ML CRP 10710 Reviewed date:09/26/2023 08:54:08 PM Interpretation: Performing Lab: Notes/Report: Diagnosis Description: Unspecified osteoarthritis, unspecified site CRP <.40 .40-1.00 MG/DL REANNA IGG SCREEN W/ RFX 06954 Reviewed date:10/04/2023 11:39:56 AM Interpretation: Performing Lab: Notes/Report: Diagnosis Description: Unspecified osteoarthritis, unspecified site REANNA IgG None Detected The GSD Antinuclear Antibody Screening test is qualitative enzyme immunoassay (EIA) intended to screen for the presence of antinuclear antibodies (REANNA) in human serum, against double stranded DNA (dsDNA,nDNA), histone, SS-A/Ro, SS-B/La, Sm, Sm/CREDENTIALING MANAGER,SCL-70,Nunu-1, and ecntromeric antigens, along with sera positive for immunofluorescent (IFA) HEp-2 REANNA. REANNA TOYIN assays have been reported to have lower sensitivity than REANNA IFA for systemic autoimmune rheumatic diseases(SARD). Negative results do not necessarily rule out SARD. RA Factor 31765, 28553 Reviewed date:09/26/2023 08:53:58 PM Interpretation: Performing Lab: Notes/Report: Diagnosis Description: Unspecified osteoarthritis, unspecified site RA Factor <3.5 .0-14.0 IU/mL Result less th an 10 Iu/ml will be considered as Negative. Sedimentation Rate 11708 Reviewed date:09/26/2023 07:54:15 PM Interpretation: Performing Lab: Notes/Report: Diagnosis Description: Unspecified osteoarthritis, unspecified site Sed Rate 5 0-30 MM/HR Comprehensive Metabolic Pane l 43267 Reviewed date:03/30/2024 07:38:16 PM Interpretation: Performing Lab: Notes/Report: Diagnosis Description: Essential (primary) hypertension Glucose Serum 170 71-110 MG/DL Testing perfor med at [facility], [address] [place] [address] [place] [address]. CLIA ID#: [id number] BUN 11 7-21 MG/DL Creat .68 .51-1.17 MG/DL V-rqhyou-h-benzoquinone imine (NAPQI) is a metabolite of acetaminophen, [...] 279 280-300 MOSM/KG CBC w\ Auto Diff 68303 Reviewed date:03/30/2024 07:39:03 PM Interpretation: Performing Lab: [...] 40.0-70.0 % Lymph Auto% 32.6 22.0-44.0 % Webb Auto% 7.8 3.0-7.0 % Eos Auto% 2.5 2.0-4.0 % Baso Auto% 1.0 0.0-1.0 % Imm Gran% .3 .0-.4 % Neutro Abs 4.33 .80-7.70 Absolute Neutrophil Count 4330 Lymph Abs 2.52 .10-4.10 Webb Abs .60 .20-1.00 Eos Abs .19 .00-.40 Baso Abs .08 .00-.20 Imm Gran Abs .02 .00-.10 NRBC# .00 .00-.20 X10'3 NRBC% .00 .00-.20 /100 int act WBC's Thyroid Stimulating Hormone (TSH) 23420 Reviewed date:03/30/2024 07:37:05 PM Interpretation: Performing Lab: Notes/Report: Diagnosis Description: Hypothyroidism, unspecified TSH .060 .358-3.740 MlU/ML Hemoglobin A1c 17288 Reviewed date:03/30/2024 07:36:48 PM Interpretation: Performing Lab: Notes/Report: Diagnosis Description: Type 2 diabetes mellitus with hyperglycemia Hgb A1c 8.0 3.8-6.4 % Interpretation Of Hgb A1c: 4.5-6.2 % nondiabetics. >7.0 % diabetics. EAG [address] [place] ge Glucose(EAG). Lipid Panel Reflex DLDL 8009 1, 42091 Reviewed date:03/30/2024 07:36:28 PM Interpretation: Performing Lab: Notes/Report: Diagnosis Description: Mixed hyperlipidemia Trig 163 5-9 yr 32-105 Adults: >20yrs 15-19 yr 37-148 High 200-499 Children: Female 0-4 yr 22-99 5-9 yr 30-101 Very high >=500 10-14 yr 37-131 Desirable <150 15-19 yr 39-132 Borderline High 150-199 10-14 yr 32-125 Children: Male 0-4 yr 34-112 Classification Guidelines:Triglycerides Chol 153 <=200 MG/DL HDL 38 39-96 MG/DL Reference Ranges:HDL 10-14y 37-70 15-19y 35-74 10-14y 37-74 Female: >=20y 40-59 5-9y 36-73 15-19y 30-63 Male: >=20y 40-59 5-9y 38-75 CH/HDL 4.1 0.0-4.9 RATIO LDL 83 0-130 MG/DL LDL result is i naccurate , if Trig is >400 mg/dl. See DLDL result. Reason For Referral No Information Medications Medication SIG (Take, Route, Frequency, Duration) Notes Start Date End Date Status Metoprolol Succinate ER 100 MG Take 1 tablet by mouth once daily for 90 Active Januvia 100 MG Take 1 tablet by mouth once daily for 30 Not-Taking ALPRAZolam 1 MG 1/2 to 1 tab Orally three times a day prn anxiety for 30 days 03/28/2024 Active Janumet 50-500 MG 1 tablet with meals Orally Twice a day for 30 days 09/26/2023 Unknown Levothyroxine Sodium 100 MCG 1 tab Orally Once a day for 90 days Active Lovastatin 20 MG 1 tab Orally Once a day in evening for 90 days Active Acetaminophen-Codeine 300-30 MG 1 tab Oral q 4 hours prn severe pain for 30 days 03/28/2024 06/26/2024 Active Losartan Potassium 50 MG TAKE 1 TABLET B Y MOUTH ONCE DAILY REPLACES VALSARTAN for 90 Active Chlorzoxazone 500 mg 1 tab Orally Three times a day prn muscle spasms for 30 days 06/26/2024 Active metFORMIN HCl 500 MG TAKE 2 TABLETS BY MOUTH TWICE DAILY WITH MEALS for 90 Active glipiZIDE 10 MG 2 tabs Orally twice a day with meal for 90 days Active Social History Tobacco Use: Social History Observation Description Date Details (start date - stop date) Never Smoker NA - NA xTobacco Use/Smoking Question Answer Notes Are you a nonsmoker Alcohol Screen (Audit-C) Question Answer Notes Did you have a drink containing alcohol in the p ast year? No Points 0 Interpretation Negative PHQ-9 Question Answer Notes Little interest or pleasure in doing things Simin ral days Feeling down, depressed, or hopeless Several day s Trouble falling or staying asleep, or sleeping t oo much Several days Feeling tired or having little energy Several da ys Poor appetite or overeating Not at all Feeling bad about yourself, or that you are a failure, or have let yourself or your family down Not at all Trouble concentrating on thi ngs, such as reading the newspaper or watching television Not at all Moving or speaking so slowly that other people could have noticed. Or the opposite ? being so fidgety or restless that you have been moving around a lot more than usual Not at all Thoughts that you would be b daniel off , or of hurting yourself in some way Not at all Total Score 4 Interpretation Minimal Depression Problems Problem Type SNOMED Code ICD Code Onset Dates Problem Status W/U Status Risk Notes Problem 888490926 Mixed hyperlipidemia (E78.2) Active confirmed Problem 8287926 Primary insomnia (F51.01) Active confirmed Problem 12910953 Anxiety (F41.9) Active confirmed Problem 78769496 Hypertension, unspecified type (I10) Active confirmed Problem 085140162 Acquired hypothyroidism (E03.9) Active confirmed Problem 85977090 Other depression (F32.89) Active confirmed Problem Osteoarthritis (535632963) Osteoarthritis (M19.90) Active confirmed Problem 715773657 Controlled type 2 diabetes mellitus with hyperglycemia, without long-term current use of insulin (E11.65) Active confirmed Vital Signs Heart Rate 75 /min 03/28/2024 Temperature 97.7 degrees Fahrenheit 03/28/2024 Respiratory Rate 20 /min 03/28/2024 Blood pressure diastolic 88 mm Hg 03/28/2024 Oximetry 98 % 03/28/2024 Height-cm 152.4 cm 03/28/2024 Weight-kg 61.69 kg 03/28/2024 Height 60 in 03/28/2024 Blood pressure systolic 163 mm Hg 03/28/2024 Weight 136 lbs 03/28/2024 BMI 26.56 kg/m2 03/28/2024 Encounters Encounter Location Date Provider Diagnosis [address] [address] 07/25/2023 [facility] Encounter for Medica re annual wellness exam Z00.00 ; Controlled type 2 diabetes mellitus with hyperglycemia, without long-term current use of insulin E11.65 ; Hypertension, unspecified type I10 ; Mixed hyperlipidemia E78.2 ; Acquired hypothyroidism E03.9 ; Muscle spasm M62.838 and prison (current) use of oral hypoglycemic drugs Z79.84 [facility] [address] [address] 09/26/2023 [facility] Controlled type 2 diabetes mellitus with hyperglycemia, without long-term current use of insulin E11.65 ; Hypertension, unspecified type I10 ; Acquired hypothyroidism E03.9 ; Anxiety F41.9 ; Osteoarthritis M19.90 ; Lumbar pain M54.50 ; Muscle spasm M62.838 ; Mixed hyperlipidemia E78.2 and 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 Z79.84 [facility] [address] [address] 03/28/2024 [facility] Controlled type 2 diabetes mellitus with hyperglycemia, without long-term current use of insulin E11.65 ; Anxiety F41.9 ; Acquired hypothyroidism E03.9 ; Hypertension, unspecified type I10 ; Muscle spasm M62.838 ; Lumbar pain M54.50 and Mixed hyperlipidemia E78.2 [facility] [address] [facility] [address] [place] [address] 06/23/2023 [email or web address] Administration [address] [place] [address] 08/21/2023 [facility] [address] [place] [address] 10/10/2023 [facility] Acquired hypothyroidism E03.9 [facility] [address] [place] [address] 10/10/2023 [facility] Mixed hyperlipidemia E78.2 [facility] [address] [place] [address] 04/18/2024 [facility] Assessments Encounter Date Diagnosis (ICD Code) Assessment Notes Treat ment Notes Treatment Clinical Notes 07/25/2023 Encounter for Medicare annual wellness exam (ICD-10 - Z00.00) see eval 07/25/2023 Controlled type 2 diabetes mellitus with hyperglycemia, without long-term current use of insulin (ICD-10 - E11.65) 09/26/2023 Hypertension, unspecified type (ICD-10 - I10) cbc cmp continue meds monitor bp 09/26/2023 Controlled type 2 diabetes mellitus with hyperglycemia, without long-term current use of insulin (ICD-10 - E11.65) ha1c januvia 100 mg a day (sample to patient metformin monitor bs glipiside 10/10/2023 Acquired hypothyroidism (ICD-10 - E03.9) 10/10/2023 Mixed hyperlipidemia (ICD-10 - E78.2) 03/28/2024 Anxiety (ICD-10 - F41.9) xanax 03/28/2024 Controlled type 2 diabetes mellitus with hyperglycemia, without long-term current use of insulin (ICD-10 - E11.65) ha1c; monitor bs; continue medications 03/28/2024 Acquired hypothyroidism (ICD-10 - E03.9) levothyroxine; tsh 09/26/2023 Acquired hypothyroidism (ICD-10 - E03.9) tsh t4 continue levothyroxine 07/25/2023 Hypertension, unspecified type (ICD-10 - I10) 07/25/2023 Mixed hyperlipidemia (ICD-10 - E78.2) 09/26/2023 Anxiety (ICD-10 - F41.9) xanax 03/28/2024 Hypertension, unspecified type (ICD-10 - I10) losartan; monitor bp; cbc cmp 03/28/2024 Muscle spasm (ICD-10 - M62.838) parafon 09/26/2023 Osteoarthritis (ICD-10 - M19.90) crp sed rate rheumatoid factor uric acid reanna 07/25/2023 Acquired hypothyroidism (ICD-10 - E03.9) 07/25/2023 Muscle spasm (ICD-10 - M62.838) meds are ordered 09/26/2023 Lumbar pain (ICD-10 - M54.50) t3 03/28/2024 Lumbar pain (ICD-10 - M54.50) tylenol #3 09/26/2023 Muscle spasm (ICD-10 - M62.838) parafon 07/25/2023 prison (current) use of oral hypoglycemic drugs (ICD-10 - Z79.84) 09/26/2023 Mixed hyperlipidemia (ICD-10 - E78.2) lipids conitue med 03/28/2024 Mixed hyperlipidemia (ICD-10 - E78.2) lovastatin; lipids 09/26/2023 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 09/26/2023 Other Questions asked and answered; discharged to home. Venipuncture: Performed by: Shanae CISNEROS Attempts: x1 Location: LAC Needle gauge: 21G Patient tolerated well. 03/28/2024 Other Questions asked and answered; discharged to home. Venipuncture: Performed by: Shanae CISNEROS Attempts: x1 Location: RAC Needle gauge: 21G Patient tolerated well. Plan Of Treatment Pending Test Test Name Order Date Mammogram Screen Venkat Rogelio [id number]/[id number] Colonoscopy, Average Risk Screening-G012 1 04/14/2016 Insurance Providers Payer Name Payer Address Payer Phone Subscriber Number Group Number Insured Name Patient Relationship to Insured Coverage Start Date Coverage End Date [place] [address] [place] [phone] [id number] Danielitomaikel ruizDaisha Self - patient is the insured [employer] Medicare Supplement [address] [place] [phone] [id number] Pranavlloyd Daisha ruiz Self - patient is the insured 4 Medical (General) History Medical History History ICD Code High Blood Pressure Hypothyroidism Chicken Pox type II diabetes hyperlipidemia Surgical History Surgery Date(Month/Year) tubal ligation 1974 hysterectomy 1984 Hospitalization History Reason Date(Month/Year) childbirth
[2024-05-28] MEDS: vancomycin 1,000 MG in sodium chloride 0.9% 250 ML 250 MG IV (12:44)
[2024-05-28 16:23] LABS: Glucose Point of Care 216 mg/dL (70-110)
--- NOTE | 2024-05-28 17:37 | P.PN_ITS ---
Subjective 2 Subjective: Patient is postoperative day 1. Having some issues with pain control adjusted her medications today. She is work with therapy twice given her restrictions feels though she would benefit from an additional day just for safe mobilization and learning how transfers and ambulation as she is planning on going home. Likely discharge home tomorrow. Internal medicine on board appreciate medical management. Vitals/I&O/Wt Last Vital Signs Temp 98.8 F 05/28/24 16:08 Pulse 86 05/28/24 16:08 Resp 17 05/28/24 16:08 BP 181/81 05/28/24 16:08 Pulse Ox 95 05/28/24 16:08 O2 Del Method Room Air 05/28/24 16:08 05/28/24 05/28/24 05/28/24 06:59 14:59 22:59 Intake Total 1173.333 / 3323.333 1288.333 / 1288.333 50 / 1338.333 Output Total 150 / 1825 Balance 1023.333 / 9597.312 6017.333 / 1288.333 50 / 1338.333 Weight last 48 hrs Weight 129 lb Weight 146 lb Weight 133 lb Physical Exam 2 Narrative: Examination left lower extremity demonstrates dressings on in place clean dry and intact. Migdalia dressing on with good seal. Patient is able to wiggle toes plantarflex and dorsiflex ankle sensations intact light touch distally. Distal pulses are palpable. Compartments are soft compressible calf soft and nontender normal diffuse tenderness palpation about the knee Urinary Catheter Management: Fragoso: Cath Placed During This Visit: yes Reason for Continuing Indwelling Catheter: Required Immobilization for Trauma or Surgery or Anesthesia Urinary Catheter Date of Insertion: 05/27/24 Urinary Catheter Time of Insertion: 12:30 Data 05/29/24 04:21 05/29/24 04:21 Other Labs: 05/28/2024 WBC 11.77, hemoglobin 12.6, creatinine 0.6 BUN 10 Xray Ortho: My impression: X-rays of the left knee the intraoperative impact the review person interpreted myself demonstrating a stable left total knee arthroplasty cemented. There is a lag screw across the incomplete intraoperatively identified fracture pattern this is not visible on x-ray no evidence of cement extravasation thru the fracture site only filling of the pin site holes. Radiologist's impression: Ordering Provider/Ordering MD: Cesar Partida Date of Service: 05/27/24 Procedure(s): XR knee LT 1-2V 69980 Accession Number(s): [id number] Report Number: [id number] PROCEDURE INFORMATION: Exam: XR Left Knee Exam date and time: 05/27/2024 5:19 PM Age: 74 years old Clinical indication: Device placement; Joint fixation hardware; Prior surgery; Surgery date: Post-operative (0-2 days); Surgery type: Lt tkr; Additional info: Post L tka, do in pacu TECHNIQUE: Imaging protocol: Radiologic exam of the left knee. Views: 1 or 2 views. COMPARISON: CR XR knee LT 4V [id number] 05/27/2024 3:34 PM FINDINGS: Bones/joints: Recently placed left total knee arthroplasty in expected alignment. Soft tissues: Soft tissue swelling and gas within the anterior knee. XR/XR knee LT 1-2V 77057 IMPRESSION: Recently placed left total knee arthroplasty in expected alignment. A&P Assessment and plan (1) S/P total knee arthroplasty: (2) Fracture of proximal end of left tibia: Plan POD #1 TKA, ORIF proximal tibia Toe-touch weightbearing left lower extremity Gentle range of motion of the left knee as tolerated Ice as needed for pain and swelling pain control PT/OT Resume Diet Postop TXA and postoperative antibiotics given Dressing changes as needed AM labs reviewed Postoperative x-rays reviewed Internal medicine consulted for medical management appreciate their assistance DVT prophylaxis (Eliquis) Patient intraoperatively while prepping of the tibia did have an incomplete fracture of the anterior and medial aspect of the tibia. This was not a complete fracture and did not extend. Patient subsequently had this addressed intraoperatively and a longer cemented tibial stem. At this point in time we will keep patient toe-touch weightbearing left lower extremity but allow gentle range of motion as she can tolerate. Plan will be for 2 weeks of this and then progress to partial weightbearing after 2 weeks. She has required some increased assistance with therapy as well as will be going home as well as adjusting pain medication today feels that she would benefit from an additional night stay for pain control as well as working with therapy prior to her discharge. Goals with patient for discharge home tomorrow. Ultimately patient understands and agrees with current plan. All questions have been answered at this time. Patient understands her intraoperative fracture was explained in detail with the patient. She understands this this has been addressed and understands her change to postoperative protocol as far as remaining toe-touch and first couple weeks and then will begin to progress her every 2 weeks so choosing everything appears stable and looks well on x-ray. Patient understands and agrees with this current plan. All questions have been answered. Attestations 2 Medical Necessity Statement*: Status post right total knee arthroplasty and ORIF proximal tibia requiring more therapy as well as pain control Coding Level of Care Code Acute Code for Chg Fwd Diagnoses S/P total knee arthroplasty Z96.659 Fracture of proximal end of left tibia S82.102A Time Spent (min) 40
[2024-05-28] MEDS: hyDRALAzine 20 mg/mL INJ 1 mL 5 MG IVP ×2 (20:17→23:57)
[2024-05-28 20:27] LABS: Glucose Point of Care 227 mg/dL (70-110)
[2024-05-29] VITALS (13 sets, daily range): BP systolic 148–184; BP diastolic 71–87; PULSE 82–93; RESP 16–20; TEMP 36.9–37.3; O2SAT 92–95
[2024-05-29] MEDS: oxyCODONE 5 mg IR Tab/Cap PO ×4 (01:45→16:47)
[2024-05-29] MEDS: hyDRALAzine 20 mg/mL INJ 1 mL 5 MG IVP (03:54)
[2024-05-29 05:10] LABS: Basophils # 0.1 10^3/uL (0.0-0.1); Basophils % 0.4 %; Eosinophils % 0.1 %; Hematocrit 38.8 % (36-47); Lymphocytes # 2.1 10^3/uL (0.8-4.8); Lymphocytes % 15.2 %; Mean Corpuscular HGB Conc 35.1 g/dL (30-55); Mean Corpuscular Hemoglobin 31.2 pg (27-33); Mean Platelet Volume 8.8 fL (7.4-10.4); Monocytes # 1.2 10^3/uL (0.2-0.9); Monocytes % 9.1 %; Neutrophils # 10.15 10^3/uL (1.8-7.7); Neutrophils % 74.8 %; Nucleated Red Blood Cells % 0 %; Platelet Count 317 10^3/cmm (157-399); Red Blood Count 4.36 10^6/uL (3.85-5.65); Red Cell Distribution Width 11.4 % (12.1-15.1); White Blood Count 13.59 10^3/uL (3.29-11.43)
[2024-05-29 05:32] LABS: Anion Gap 16.6 (5-19); Blood Urea Nitrogen 6 mg/dL (8-23); Calcium 9.2 mg/dL (8.5-10.5); Carbon Dioxide 25 mmol/L (22-29); Chloride 86 mmol/L (98-107); Creatinine Clr Calc Pharmacy 65.0431; Glucose 228 mg/dL (65-115); Osmolality Calculated 263 mOsm/kg (285-295); Potassium 3.6 mmol/L (3.5-5.1); Sodium 124 mmol/L (136-145)
[2024-05-29 06:21] LABS: Glucose Point of Care 215 mg/dL (70-110)
[2024-05-29] MEDS: atorvastatin 40 mg Tablet 20 MG PO (08:10)
[2024-05-29] MEDS: iron polysaccharide complex 150 mg Capsule PO ×2 (08:12→17:51)
[2024-05-29] MEDS: metoprolol succinate ER (24 HR) 100 mg Tablet PO (08:15)
[2024-05-29] MEDS: levothyroxine 100 mcg Tablet PO (08:16)
[2024-05-29] MEDS: sennosides-docusate Tablet 2 TAB PO ×2 (08:17→17:50)
[2024-05-29] MEDS: calcium carb-vit d 600mg/400unit 1 Tablet 1 EACH PO ×2 (08:17→17:52)
[2024-05-29] MEDS: multivitamin therapeutic Tablet 1 TAB PO (08:17)
[2024-05-29] MEDS: apixaban 5 mg Tablet 2.5 MG PO ×2 (08:18→17:55)
[2024-05-29] MEDS: losartan 50 mg Tablet PO (08:19)
[2024-05-29] MEDS: insulin lispro 100 unit/1 mL SUBCUT ×4 (08:24→20:27)
[2024-05-29] MEDS: mupirocin oint 22 gm 1 APPLIC NASAL ×2 (08:25→17:59)
[2024-05-29] MEDS: chlorhexidine gluconate 0.12% Btl 473 mL 30 ML MUCOUS MEM ×4 (08:25→20:28)
[2024-05-29] MEDS: docusate sodium 100 mg Capsule PO ×2 (08:26→17:50)
[2024-05-29] MEDS: sodium chloride 1 gm Tablet PO ×4 (08:45→17:55)
--- NOTE | 2024-05-29 08:50 | PC.CHAP ---
Pastoral Care Encounter/Spiritual Assessment Type of Contact [] Declined game technician visit [] Patient/Family/Request visit [] Outpatient visit [] Follow-up visit [] Physician referral [] Code/Alert [] Routine visit [] Staff referral [] Actively dying [] Patient sleeping [] Family support [] [] Out of room [] Palliative care [] [x] Receiving care in room [] Pre-surgical visit [] Trauma [] Long length of stay [] ICU visit [] Other: Relational/Emotional Strength [] Patient feels connected with others/family/visitors/staff [] Distress [] Loneliness/isolation [] Abandonment Spirituality of Patient [] Person of Pippa [] Attends Uatsdin of their Pippa [] Believes in Prayer [] Reads Bible or Quaker materials [] There are Spiritual issues to be addressed Band Top Maker Interventions [] Prayer [] Active listening [] Non-anxious presence [] Spiritual/emotional support [] Crisis/trauma care [] Spiritual counseling [] Bereavement support [] Provided bereavement packet [] Provided Bible/devotional materials [] Provided toy/stuffed animal, coloring book to patient or family member [] Provided Communion [] Anointing/Collins [] Salvation [] Completed spiritual assessment [] Other: Impact on Illness or Injury [] Angry [] Fearful [] Anxious [] Often cries [] Exhaustion [] Unable to work [] Unable to attend baptism [] Unable to walk/stand [] Unable to read [] Unable to drive [] Unable to eat/drink [] Unable to sleep [] Unable to be with family [] Patient intubated [] Other: Summary Time spent with patient
[2024-05-29] MEDS: sodium chloride 0.9% 1,000 ML 75 ML IV ×2 (09:48→21:56)
--- NOTE | 2024-05-29 09:58 | PC.SOCIAL ---
IMM Update pg 2 of IMM updated and reviewed w/ patient. Copy provided and copy dated, initialed and placed in chart.
--- NOTE | 2024-05-29 10:45 | P.PN_ITS ---
Subjective 2 Subjective: Patient is stating that she is feeling nauseous, she had 2 bowel movements yesterday which are semisolid Endorsing slightly better this morning I did tell her that her sodium is 124 patient is endorsing that she has not eaten well she is not liking the hospital food I have given her salt tablets today along IV fluids PT recommended home health services Vitals/I&O/Wt Last Vital Signs Temp 98.8 F 05/29/24 08:00 Pulse 91 05/29/24 08:40 Resp 20 H 05/29/24 08:40 BP 167/84 05/29/24 08:19 Pulse Ox 93 05/29/24 08:40 O2 Del Method Room Air 05/29/24 08:40 05/28/24 05/29/24 05/29/24 22:59 06:59 14:59 Intake Total 290 / 1578.333 240 / 1818.333 360 / 360 Output Total 400 / 400 535 / 935 400 / 400 Balance -110 / 1178.333 -295 / 883.333 -40 / -40 Weight last 48 hrs Weight 64.818 kg Weight 58.513 kg Weight 66.224 kg Weight 60.328 kg Physical Exam 2 Narrative: Patient is awake and alert Dehydrated Nonfocal neuroexam Hemodynamically stable Hypertensive Currently on room air No severe abdominal pain however endorsing nausea Lower extremity no sign of vascular compromise S1, S2, hypertensive Urinary Catheter Management: Fragoso: Cath Placed During This Visit: yes Reason for Continuing Indwelling Catheter: Required Immobilization for Trauma or Surgery or Anesthesia Urinary Catheter Date of Insertion: 05/27/24 Urinary Catheter Time of Insertion: 12:30 Data 05/29/24 04:21 05/29/24 04:21 A&P Assessment and plan (1) Hypertension: (2) Type 2 diabetes mellitus: (3) Hypothyroidism: (4) S/P total knee arthroplasty: (5) Degenerative joint disease of left knee: (6) Hyponatremia: Plan Postoperative hyponatremia: Patient not eating well Clinically looks dehydrated Started normal saline given salt tablets PT recommended home health services Patient can be discharged if sodium keeps improving, recheck sodium at 2 PM once cleared by orthopedics, she will receive salt tablets on discharge, she already has Eliquis DVT prophylaxis and Tylenol 3 I do not think she will need further opioids at the time of discharge Medicine team will follow along Attestations 2 Medical Necessity Statement*: Continue medical management Diagnoses Hypertension I10 Type 2 diabetes mellitus E11.9 Hypothyroidism E03.9 S/P total knee arthroplasty Z96.659 Degenerative joint disease of left knee M17.12 Hyponatremia E87.1
[2024-05-29 11:34] LABS: Glucose Point of Care 264 mg/dL (70-110)
--- NOTE | 2024-05-29 13:26 | PM.DCS ---
Discharge Providers Date of Admission: 05/27/24 17:30 Date of Discharge: May 29, 2024 Attending Provider at Admission: Cesar Partida DO Attending Provider at Discharge: Cesar Partida DO Primary Care Provider: Stefani Sandoval APN Diagnoses at Discharge Discharge Diagnosis (1) Hypertension: Status: Acute (2) Type 2 diabetes mellitus: Status: Acute (3) Hypothyroidism: Status: Acute (4) S/P total knee arthroplasty: Status: Acute (5) Degenerative joint disease of left knee: Status: Acute (6) Hyponatremia: Status: Acute Physical Exam Urinary Catheter Management: Fragoso: Cath Placed During This Visit: yes Reason for Continuing Indwelling Catheter: Required Immobilization for Trauma or Surgery or Anesthesia Urinary Catheter Date of Insertion: 05/27/24 Urinary Catheter Time of Insertion: 12:30 Discharge Data Studies Completed and Pending Completed Studies During Hospitalization Category Date Time Status XR knee LT 1-2V 19075 Routine Exams 05/27/24 17:04 Completed XR knee LT 3V* [id number] Routine Exams 05/27/24 15:26 Completed XR knee LT 4V [id number] Routine Exams 05/27/24 00:00 Completed Pending at discharge Category Date Time Status Basic Metabolic Panel AM LABS Lab 05/30/24 04:00 Ordered Basic Metabolic Panel AM LABS Lab 05/30/24 04:00 Ordered Complete Blood Count w/Auto AM LABS Lab 05/30/24 04:00 Ordered Complete Blood Count w/Auto AM LABS Lab 05/30/24 04:00 Ordered Sodium Timed Lab 05/29/24 14:00 Ordered Radiology Impressions Knee X-Ray 05/27/24 17:04 IMPRESSION: Recently placed left total knee arthroplasty in expected alignment. Laboratory Results WBC 13.59 10^3/uL (3.29-11.43) H 05/29/24 04:21 RBC 4.36 10^6/uL (3.85-5.65) 05/29/24 04:21 Hgb 13.60 g/dL (11.27-16.99) 05/29/24 04:21 Hct 38.8 % (36-47) 05/29/24 04:21 MCV 89.0 fl (85-98) 05/29/24 04:21 MCH 31.2 pg (27-33) 05/29/24 04:21 MCHC 35.1 g/dL (30-55) 05/29/24 04:21 RDW 11.4 % (12.1-15.1) L 05/29/24 04:21 Plt Count 317 10^3/cmm (157-399) 05/29/24 04:21 MPV 8.8 fL (7.4-10.4) 05/29/24 04:21 Neut % (Auto) 74.8 % 05/29/24 04:21 Lymph % (Auto) 15.2 % 05/29/24 04:21 [place] % (Auto) 9.1 % 05/29/24 04:21 Eos % (Auto) 0.1 % 05/29/24 04:21 Baso % (Auto) 0.4 % 05/29/24 04:21 Neut # (Auto) 10.15 10^3/uL (1.8-7.7) H 05/29/24 04:21 Lymph # (Auto) 2.1 10^3/uL (0.8-4.8) 05/29/24 04:21 [place] # (Auto) 1.2 10^3/uL (0.2-0.9) H 05/29/24 04:21 Eos # (Auto) 0.0 10^3/uL (0.0-0.8) 05/29/24 04:21 Baso # (Auto) 0.1 10^3/uL (0.0-0.1) 05/29/24 04:21 Nucleated RBC % (auto) 0 % 05/29/24 04:21 Nucleated RBCs # 0.0 /100WBC 05/29/24 04:21 Sodium 124 mmol/L (136-145) L 05/29/24 04:21 Potassium 3.6 mmol/L (3.5-5.1) 05/29/24 04:21 Chloride 86 mmol/L (98-107) L 05/29/24 04:21 Carbon Dioxide 25 mmol/L (22-29) 05/29/24 04:21 Anion Gap 16.6 (5-19) 05/29/24 04:21 BUN 6 mg/dL (8-23) L 05/29/24 04:21 Creatinine 0.5 mg/dL (0.5-0.9) 05/29/24 04:21 GFR Calculation Not Reportable 05/29/24 04:21 Glucose 228 mg/dL (65-115) H 05/29/24 04:21 POC Glucose 264 mg/dL (70-110) H 05/29/24 11:14 Calculated Osmolality 263 mOsm/kg (285-295) L 05/29/24 04:21 Calcium 9.2 mg/dL (8.5-10.5) 05/29/24 04:21 Urine Color Yellow (Yellow) 05/27/24 12:45 Urine Appearance Cloudy (CLEAR) A 05/27/24 12:45 Urine pH 5.5 (5-7) 05/27/24 12:45 Ur Specific [place] 1.017 (1.005-1.030) 05/27/24 12:45 Urine Protein Trace (Negative) A 05/27/24 12:45 Urine Glucose (UA) Negative (Normal) 05/27/24 12:45 Urine Ketones Negative (Negative) 05/27/24 12:45 Urine Blood Negative (Negative) 05/27/24 12:45 Urine Nitrate Negative (Negative) 05/27/24 12:45 Urine Bilirubin Negative (Negative) 05/27/24 12:45 Urine Urobilinogen 1.0 mg/dL (Negative) 05/27/24 12:45 Ur Leukocyte Esterase Negative (Negative) 05/27/24 12:45 Urine RBC 0-2 /hpf (0-2) 05/27/24 12:45 Urine WBC 0-5 /hpf (0-5) 05/27/24 12:45 Ur Squamous Epith Cells 0-5 /hpf (0-5) 05/27/24 12:45 Amorphous Sediment Not Reportable 05/27/24 12:45 Urine Bacteria None seen /hpf (NONE) 05/27/24 12:45 Hyaline Casts 0-4 /lpf H 05/27/24 12:45 Blood Type O Positive 05/27/24 13:05 Rho(D) Type Rh positive 05/27/24 13:05 Antibody Screen Negative 05/27/24 13:05 Vitals Last Vital Signs Temp 99.0 F 05/29/24 11:38 Pulse 84 05/29/24 11:38 Resp 16 05/29/24 11:38 BP 154/79 05/29/24 11:38 Pulse Ox 93 05/29/24 11:38 O2 Del Method Room Air 05/29/24 11:38 Discharge Plan Discharge Patient Disposition: Home Health Service Condition: Stable Prescriptions: New oxycodone 5 mg tablet 10 mg PO Q6H PRN (Reason: pain) 7 Days Qty: 56 0RF Rx Instructions: 1 tab moderate pain 2 tabs severe pain Eliquis 2.5 mg tablet 2.5 mg PO BID 14 Days Qty: 28 0RF ondansetron 4 mg tablet,disintegrating 4 mg PO Q8H PRN (Reason: nausea and vomiting) 3 Days Qty: 9 0RF sodium chloride 1,000 mg tablet,soluble 1,000 mg PO BID Qty: 10 0RF Continued metformin 500 mg tablet 1,000 mg PO BID glipizide 10 mg tablet 10 mg PO TID alprazolam 1 mg tablet 1 mg PO DAILY PRN (Reason: Anxiety) Rx Instructions: 1/2 to 1 acetaminophen-codeine [Tylenol-Codeine #3] 300-30 mg tablet 1 tab PO BID PRN (Reason: Pain) losartan 50 mg tablet 50 mg PO DAILY metoprolol succinate 100 mg tablet extended release 24 hr 100 mg PO DAILY lovastatin 20 mg tablet 20 mg PO DAILY levothyroxine 100 mcg tablet 100 mcg PO DAILY sulfamethoxazole-trimethoprim [Bactrim DS] 800-160 mg tablet 1 tab PO BID 5 Days Qty: 10 0RF chlorzoxazone 500 mg tablet 500 mg PO TID Discharge Orders: Discharge Order (Routine); Ordered 05/29/24 Ordered By: Cesar Partida Other Ambulatory Orders: DME: Walker (Order) Location: None Selected Ordered By: Cesar Partida Referrals: [facility] [Outside] Cesar Partida DO [Physician] - Discharge Diet: Regular Discharge Activity: Limit activity as instructed and Use walker/crutches as instructed Patient Instructions: Ondansetron (By mouth), Apixaban (By mouth), Acute Wound Care (DC), Total Knee Replacement (GEN), Joint Replacement Stoplight, Opioid Safety, Post Anesthesia Care Activity Restrictions/Additional Instructions: Orthopedic discharge instructions Migdalia Dressing--Keep dressing on and dry. After 3 days you can remove some of the dressing and shower. disconnect battery pack when showering. Migdalia dressing will stay on until follow up appt in 2 weeks. The battery pack for the dressing will at 5-7 days. Battery pack can be removed and discarded once batteries . Toe-touch weightbearing on left leg. Utilize crutches/walker as needed Encourage gentle knee range of motion Ice and elevate as needed for pain and swelling Take pain medication as prescribed Take antinausea medication as needed Pain medication can cause constipation. take [id number]-xucwjrb stool softeners and or MiraLAX. Take prescribed Eliquis twice daily for the next 14 days for blood clot prevention May supplement for pain with ibuprofen [id number]-[id number] as needed No baths or soaks Follow-up in the orthopedic office in 2 weeks Contact the office for any questions or concerns Coding Level of Care Code Acute Code for Chg Fwd Diagnoses Hypertension I10 Type 2 diabetes mellitus E11.9 Hypothyroidism E03.9 S/P total knee arthroplasty Z96.659 Degenerative joint disease of left knee M17.12 Hyponatremia E87.1
[2024-05-29 14:36] LABS: Sodium 121 mmol/L (136-145)
[2024-05-29 16:20] LABS: Glucose Point of Care 200 mg/dL (70-110)
[2024-05-29 19:40] LABS: Sodium 124 mmol/L (136-145)
[2024-05-29 20:24] LABS: Glucose Point of Care 277 mg/dL (70-110)
--- NOTE | 2024-05-29 20:51 | P.PN_ITS ---
Subjective 2 Subjective: Patient was in after lunchtime today. Plan was for discharge home with home health. She is progressed appropriately with therapy and stable from orthopedic standpoint. Her sodium is down to 124 today and currently internal medicine is on board and managing. Patient given normal saline as well as salt tablets and planning for recheck. I was contacted by the nursing staff that the recheck had went down and ultimately internal medicine recommends additional day for following will defer to their management for this. Orthopedics will continue to be on board with patient. Vitals/I&O/Wt Last Vital Signs Temp 98.9 F 05/29/24 19:56 Pulse 90 05/29/24 19:56 Resp 17 05/29/24 19:56 BP 148/78 05/29/24 19:56 Pulse Ox 92 05/29/24 19:56 O2 Del Method Room Air 05/29/24 16:00 05/29/24 05/29/24 05/29/24 06:59 14:59 22:59 Intake Total 240 / 1818.333 480 / 480 Output Total 535 / 935 650 / 650 700 / 1350 Balance -295 / 883.333 -170 / -170 -700 / -870 Weight last 48 hrs Weight 142 lb 14.4 oz Weight 129 lb Physical Exam 2 Narrative: Examination left lower extremity demonstrates dressings on in place clean dry and intact. Migdalia dressing on with good seal. Patient is able to wiggle toes plantarflex and dorsiflex ankle sensations intact light touch distally. Distal pulses are palpable. Compartments are soft compressible calf soft and nontender normal diffuse tenderness palpation about the knee Data 05/29/24 04:21 05/29/24 19:07 A&P Assessment and plan (1) S/P total knee arthroplasty: (2) Fracture of proximal end of left tibia: Plan POD #2 TKA, ORIF proximal tibia Toe-touch weightbearing left lower extremity Gentle range of motion of the left knee as tolerated Ice as needed for pain and swelling pain control PT/OT Resume Diet Postop TXA and postoperative antibiotics given Dressing changes as needed AM labs reviewed-124 sodium internal medicine managing Postoperative x-rays reviewed Internal medicine consulted for medical management appreciate their assistance DVT prophylaxis (Eliquis) Patient at this point in time has a downtrend in sodium and ultimately internal medicine recommending an additional night stay originally was planning on discharging home with home health care later today however recheck of her sodium is down trended further. As result internal medicine is on board managing and will defer to their management. Patient will require additional night stay. Orthopedic team will continue to follow along with patient. Attestations 2 Medical Necessity Statement*: Status post left TKA and ORIF proximal tibia, hyponatremia needing further workup by internal medicine and further hospitalization Coding Level of Care Code Acute Code for Chg Fwd Diagnoses S/P total knee arthroplasty Z96.659 Fracture of proximal end of left tibia S82.102A Time Spent (min) 20
[2024-05-30 02:58] VITALS: RESP 18
[2024-05-30] MEDS: oxyCODONE 5 mg IR Tab/Cap PO ×2 (02:58→08:31)
[2024-05-30 04:00] VITALS: BP 164/84; PULSE 90; RESP 18; TEMP 36.8; O2SAT 92
[2024-05-30 05:03] LABS: Basophils # 0.1 10^3/uL (0.0-0.1); Basophils % 0.6 %; Eosinophils % 0.2 %; Hematocrit 36.3 % (36-47); Lymphocytes # 1.8 10^3/uL (0.8-4.8); Lymphocytes % 18.4 %; Mean Corpuscular HGB Conc 34.4 g/dL (30-55); Mean Corpuscular Volume 90.1 fl (85-98); Mean Platelet Volume 8.3 fL (7.4-10.4); Monocytes # 1.2 10^3/uL (0.2-0.9); Monocytes % 12.2 %; Neutrophils # 6.84 10^3/uL (1.8-7.7); Neutrophils % 68.3 %; Nucleated Red Blood Cells % 0 %; Platelet Count 302 10^3/cmm (157-399); Red Blood Count 4.03 10^6/uL (3.85-5.65); Red Cell Distribution Width 11.5 % (12.1-15.1); White Blood Count 10.01 10^3/uL (3.29-11.43)
[2024-05-30 05:22] LABS: Anion Gap 14.4 (5-19); Blood Urea Nitrogen 7 mg/dL (8-23); Calcium 8.8 mg/dL (8.5-10.5); Carbon Dioxide 26 mmol/L (22-29); Chloride 94 mmol/L (98-107); Creatinine Clr Calc Pharmacy 65.8167; Glucose 218 mg/dL (65-115); Osmolality Calculated 277 mOsm/kg (285-295); Potassium 3.4 mmol/L (3.5-5.1); Sodium 131 mmol/L (136-145)
[2024-05-30 06:35] LABS: Glucose Point of Care 206 mg/dL (70-110)
[2024-05-30 07:29] VITALS: BP 167/85; PULSE 93; RESP 15; TEMP 37; O2SAT 96
[2024-05-30 08:00] VITALS: BP 159/72; PULSE 109; RESP 18; TEMP 36.9; O2SAT 94
[2024-05-30 08:31] VITALS: RESP 18
[2024-05-30] MEDS: sodium chloride 1 gm Tablet PO (08:31)
[2024-05-30] MEDS: calcium carb-vit d 600mg/400unit 1 Tablet 1 EACH PO (08:31)
[2024-05-30] MEDS: levothyroxine 100 mcg Tablet PO (08:32)
[2024-05-30] MEDS: apixaban 5 mg Tablet 2.5 MG PO (08:32)
[2024-05-30] MEDS: sennosides-docusate Tablet 2 TAB PO (08:32)
[2024-05-30] MEDS: docusate sodium 100 mg Capsule PO (08:32)
[2024-05-30] MEDS: iron polysaccharide complex 150 mg Capsule PO (08:32)
[2024-05-30] MEDS: atorvastatin 40 mg Tablet 20 MG PO (08:32)
[2024-05-30] MEDS: multivitamin therapeutic Tablet 1 TAB PO (08:32)
[2024-05-30 08:35] VITALS: BP 159/72
[2024-05-30] MEDS: losartan 50 mg Tablet PO (08:35)
[2024-05-30] MEDS: metoprolol succinate ER (24 HR) 100 mg Tablet PO (08:35)
[2024-05-30] MEDS: insulin lispro 100 unit/1 mL SUBCUT (08:35)
[2024-05-30] MEDS: chlorhexidine gluconate 0.12% Btl 473 mL 30 ML MUCOUS MEM (08:36)
[2024-05-30] MEDS: mupirocin oint 22 gm 1 APPLIC NASAL (08:36)
--- NOTE | 2024-05-30 10:09 | P.PN_ITS ---
Subjective 2 Subjective: Patient endorsing feeling better Sodium improved She can be discharged home today Vitals/I&O/Wt Last Vital Signs Temp 98.5 F 05/30/24 08:00 Pulse 109 H 05/30/24 08:00 Resp 18 05/30/24 08:31 BP 159/72 05/30/24 08:35 Pulse Ox 94 05/30/24 08:00 O2 Del Method Room Air 05/30/24 08:00 05/29/24 05/30/24 05/30/24 22:59 06:59 14:59 Intake Total 1410 / 1890 330 / 2220 140 / 140 Output Total 1000 / 1650 Balance 410 / 240 330 / 570 140 / 140 Weight last 48 hrs Weight 65.589 kg Weight 64.818 kg Physical Exam 2 Narrative: Euvolemic GCS 15 Nonfocal neuroexam Pleasant cooperative Hypertensive Awake and alert Nonfocal neuroexam Urinary Catheter Management: Fragoso: Cath Placed During This Visit: yes Reason for Continuing Indwelling Catheter: Required Immobilization for Trauma or Surgery or Anesthesia Urinary Catheter Date of Insertion: 05/27/24 Urinary Catheter Time of Insertion: 12:30 Data 05/30/24 04:56 05/30/24 04:56 A&P Assessment and plan (1) Hypertension: (2) Type 2 diabetes mellitus: (3) Hypothyroidism: (4) Hyponatremia: (5) S/P total knee arthroplasty: Plan Patient had hyponatremia secondary to poor p.o. intake With salt tablets and IV fluid hydration sodium has improved I have asked patient to take salt tablets for next 2 days since she is endorsing anorexia Potassium replenished She will be considered safe to be discharged from medical standpoint Patient already has Tylenol 3 at home as per the pharmacy She has been given Eliquis for DVT prophylaxis. Medical team will sign off, please call with any questions you might have. Attestations 2 Medical Necessity Statement*: Discharge today Diagnoses Hypertension I10 Type 2 diabetes mellitus E11.9 Hypothyroidism E03.9 Hyponatremia E87.1 S/P total knee arthroplasty Z96.659
[2024-05-30] MEDS: potassium chloride ER 20 mEq Tablet 40 MEQ PO (10:30)
[2024-05-30 11:21] LABS: Glucose Point of Care 217 mg/dL (70-110)
--- NOTE | 2024-05-30 12:10 | PM.DCS ---
Discharge Providers Date of Admission: 05/27/24 17:30 Date of Discharge: May 30, 2024 Attending Provider at Admission: Cesar Partida DO Attending Provider at Discharge: Cesar Partida DO Consults: Dr. Gibbs- hospitalist Primary Care Provider: Stefani Sandoval APN Diagnoses at Discharge Discharge Diagnosis (1) Hypertension: Status: Inactive (2) Type 2 diabetes mellitus: Status: Inactive (3) Hypothyroidism: Status: Inactive (4) Hyponatremia: Status: Inactive (5) S/P total knee arthroplasty: Status: Inactive Reason for Visit Reason for Visit: Brief History: Left knee degenerative joint disease, underwent left total knee arthroplasty unfortunately during the prepping of the tibia sustained an incomplete fracture in the anterior cortex of the proximal tibia underwent ORIF and then subsequent cementation. Patient was then admitted postoperatively will be toe-touch weightbearing and gentle range of motion of the knee. Hospital Course Hospital Course Patient presented to the preoperative holding area with plan for left total knee arthroplasty after patient has been worked up in the outpatient setting for failed conservative treatment of left knee degenerative joint disease. Once cleared by anesthesia for surgery patient subsequently was taken back to the operative suite underwent anesthesia per anesthesia department and then subsequently underwent a left total knee arthroplasty. Procedure was performed however intraoperatively did sustain an incomplete fracture of the anterior medial proximal tibia. This was addressed intraoperatively with open reduction internal fixation as well as then placed a longer tibial stem and this was cemented into place. Patient was then awakened from anesthesia and taken to PACU in stable condition patient recovered well in PACU and then was admitted to the floor postoperatively internal medicine was consulted and on board for medical management and assistance with care. Patient received appropriate PT/OT, postoperative antibiotics, postoperative TXA, pain control, postoperative DVT prophylaxis. Elevation and ice. Patient encouraged for knee range of motion allowed, given soft bone quality and intraoperative fracture Patient with toe-touch weightbearing to the operative lower extremity. Dressing was changed as needed, labs were monitored daily. Patient recovered well postoperatively and worked well and progressed well with therapy. Patient required an additional night stay for pain as well as working with therapy and then on postoperative day 2 she did have a downtrending sodium which was managed by the hospitalist refer to their progress notes for details this recovered and on postoperative day 3 it was the determined the patient was stable to discharge from internal medicine standpoint. It was determined on postoperative day 3 the patient was stable for discharge from an orthopedic standpoint and medicine. Patient was comfortable with discharge and plan was discharged home. Patient received appropriate discharge instructions as well as pain medication and DVT prophylaxis postoperatively. Given appropriate instructions for dressing management. After 2 weeks we will marcos-ray and as long as stable implantation will begin progressing patient through weightbearing starting off with partial weightbearing next. Patient understands and agrees with current plan. All questions answered at this time. Patient will follow-up with Dr. Partida in the office in 2 weeks. All questions answered. Understand if there is any issues questions or concerns and contact the office. Physical Exam Narrative: Examination left lower extremity demonstrates dressings on in place clean dry and intact. Migdalia dressing on with good seal. Patient is able to wiggle toes plantarflex and dorsiflex ankle sensations intact light touch distally. Distal pulses are palpable. Compartments are soft compressible calf soft and nontender, normal diffuse tenderness palpation about the knee as well as swelling Urinary Catheter Management: Fragoso: Cath Placed During This Visit: yes Reason for Continuing Indwelling Catheter: Required Immobilization for Trauma or Surgery or Anesthesia Urinary Catheter Date of Insertion: 05/27/24 Urinary Catheter Time of Insertion: 12:30 Discharge Data Studies Completed and Pending Completed Studies During Hospitalization Category Date Time Status XR knee LT 1-2V [id number] Routine Exams 05/27/24 17:04 Completed XR knee LT 3V* [id number] Routine Exams 05/27/24 15:26 Completed XR knee LT 4V [id number] Routine Exams 05/27/24 00:00 Completed Radiology Impressions Knee X-Ray 05/27/24 17:04 IMPRESSION: Recently placed left total knee arthroplasty in expected alignment. Laboratory Results WBC 10.01 10^3/uL (3.29-11.43) 05/30/24 04:56 RBC 4.03 10^6/uL (3.85-5.65) 05/30/24 04:56 Hgb 12.50 g/dL (11.27-16.99) 05/30/24 04:56 Hct 36.3 % (36-47) 05/30/24 04:56 MCV 90.1 fl (85-98) 05/30/24 04:56 MCH 31.0 pg (27-33) 05/30/24 04:56 MCHC 34.4 g/dL (30-55) 05/30/24 04:56 RDW 11.5 % (12.1-15.1) L 05/30/24 04:56 Plt Count 302 10^3/cmm (157-399) 05/30/24 04:56 MPV 8.3 fL (7.4-10.4) 05/30/24 04:56 Neut % (Auto) 68.3 % 05/30/24 04:56 Lymph % (Auto) 18.4 % 05/30/24 04:56 Blaine % (Auto) 12.2 % 05/30/24 04:56 Eos % (Auto) 0.2 % 05/30/24 04:56 Baso % (Auto) 0.6 % 05/30/24 04:56 Neut # (Auto) 6.84 10^3/uL (1.8-7.7) 05/30/24 04:56 Lymph # (Auto) 1.8 10^3/uL (0.8-4.8) 05/30/24 04:56 Blaine # (Auto) 1.2 10^3/uL (0.2-0.9) H 05/30/24 04:56 Eos # (Auto) 0.0 10^3/uL (0.0-0.8) 05/30/24 04:56 Baso # (Auto) 0.1 10^3/uL (0.0-0.1) 05/30/24 04:56 Nucleated RBC % (auto) 0 % 05/30/24 04:56 Nucleated RBCs # 0.0 /100WBC 05/30/24 04:56 Sodium 131 mmol/L (136-145) L 05/30/24 04:56 Potassium 3.4 mmol/L (3.5-5.1) L 05/30/24 04:56 Chloride 94 mmol/L (98-107) L 05/30/24 04:56 Carbon Dioxide 26 mmol/L (22-29) 05/30/24 04:56 Anion Gap 14.4 (5-19) 05/30/24 04:56 BUN 7 mg/dL (8-23) L 05/30/24 04:56 Creatinine 0.5 mg/dL (0.5-0.9) 05/30/24 04:56 GFR Calculation Not Reportable 05/30/24 04:56 Glucose 218 mg/dL (65-115) H 05/30/24 04:56 POC Glucose 217 mg/dL (70-110) H 05/30/24 11:16 Calculated Osmolality 277 mOsm/kg (285-295) L 05/30/24 04:56 Calcium 8.8 mg/dL (8.5-10.5) 05/30/24 04:56 Urine Color Yellow (Yellow) 05/27/24 12:45 Urine Appearance Cloudy (CLEAR) A 05/27/24 12:45 Urine pH 5.5 (5-7) 05/27/24 12:45 Ur Specific [place] 1.017 (1.005-1.030) 05/27/24 12:45 Urine Protein Trace (Negative) A 05/27/24 12:45 Urine Glucose (UA) Negative (Normal) 05/27/24 12:45 Urine Ketones Negative (Negative) 05/27/24 12:45 Urine Blood Negative (Negative) 05/27/24 12:45 Urine Nitrate Negative (Negative) 05/27/24 12:45 Urine Bilirubin Negative (Negative) 05/27/24 12:45 Urine Urobilinogen 1.0 mg/dL (Negative) 05/27/24 12:45 Ur Leukocyte Esterase Negative (Negative) 05/27/24 12:45 Urine RBC 0-2 /hpf (0-2) 05/27/24 12:45 Urine WBC 0-5 /hpf (0-5) 05/27/24 12:45 Ur Squamous Epith Cells 0-5 /hpf (0-5) 05/27/24 12:45 Amorphous Sediment Not Reportable 05/27/24 12:45 Urine Bacteria None seen /hpf (NONE) 05/27/24 12:45 Hyaline Casts 0-4 /lpf H 05/27/24 12:45 Blood Type O Positive 05/27/24 13:05 Rho(D) Type Rh positive 05/27/24 13:05 Antibody Screen Negative 05/27/24 13:05 Vitals Last Vital Signs Temp 98.5 F 05/30/24 08:00 Pulse 109 H 05/30/24 08:00 Resp 18 05/30/24 08:31 BP 159/72 05/30/24 08:35 Pulse Ox 94 05/30/24 08:00 O2 Del Method Room Air 05/30/24 08:00 Discharge Plan Discharge Patient Disposition: Home Health Service Condition: Stable Prescriptions: New Eliquis 2.5 mg tablet 2.5 mg PO BID 14 Days Qty: 28 0RF sodium chloride 1,000 mg tablet,soluble 1,000 mg PO BID Qty: 10 0RF Continued metformin 500 mg tablet 1,000 mg PO BID glipizide 10 mg tablet 10 mg PO TID alprazolam 1 mg tablet 1 mg PO DAILY PRN (Reason: Anxiety) Rx Instructions: 1/2 to 1 acetaminophen-codeine [Tylenol-Codeine #3] 300-30 mg tablet 1 tab PO BID PRN (Reason: Pain) losartan 50 mg tablet 50 mg PO DAILY metoprolol succinate 100 mg tablet extended release 24 hr 100 mg PO DAILY lovastatin 20 mg tablet 20 mg PO DAILY levothyroxine 100 mcg tablet 100 mcg PO DAILY sulfamethoxazole-trimethoprim [Bactrim DS] 800-160 mg tablet 1 tab PO BID 5 Days Qty: 10 0RF chlorzoxazone 500 mg tablet 500 mg PO TID No Action oxycodone 5 mg tablet 10 mg PO Q6H PRN (Reason: pain) 7 Days Qty: 56 0RF Rx Instructions: 1 tab moderate pain 2 tabs severe pain Discharge Orders: Discharge Order (Routine); Ordered 05/30/24 Ordered By: Natacha Gibbs Other Ambulatory Orders: DME: Ronal (Order) Location: None Selected Ordered By: Cesar Partida Referrals: [facility] [Outside] Cesar Partida DO [Physician] - 06/11/24 2:00 pm Sandoval,LAURA Ko [Primary Care Provider] - 06/04/24 11:00 am Discharge Diet: Regular Discharge Activity: Limit activity as instructed and Use walker/crutches as instructed Patient Instructions: Oxycodone, Rapid Release (By mouth), Ondansetron (By mouth), Apixaban (By mouth), Sodium Chloride (By mouth), Hyponatremia, Total Knee Replacement (GEN), Joint Replacement Stoplight, Opioid Safety, Post Anesthesia Care Activity Restrictions/Additional Instructions: Orthopedic discharge instructions Migdalia Dressing--Keep dressing on and dry. After 3 days you can remove some of the dressing and shower. disconnect battery pack when showering. Migdalia dressing will stay on until follow up appt in 2 weeks. The battery pack for the dressing will at 5-7 days. Battery pack can be removed and discarded once batteries . Toe-touch weightbearing on left leg. Utilize crutches/walker as needed Encourage gentle knee range of motion Ice and elevate as needed for pain and swelling Take pain medication as prescribed Take antinausea medication as needed Pain medication can cause constipation. take [id number] stool softeners and or MiraLAX. Take prescribed Eliquis twice daily for the next 14 days for blood clot prevention May supplement for pain with ibuprofen [id number] as needed No baths or soaks Follow-up in the orthopedic office in 2 weeks Contact the office for any questions or concerns Discharge Attestations Time Spent in Discharge Care*: greater than 30 min Quality Metrics Clinical Quality Measures [ No reported AMI, CVA or VTE this stay] Coding Level of Care Code Acute Code for Chg Fwd Diagnoses Hypertension I10 Type 2 diabetes mellitus E11.9 Hypothyroidism E03.9 Hyponatremia E87.1 S/P total knee arthroplasty Z96.659 Time Spent (min) 30
== END 2024-05-30 12:24 | disposition home health service (06) | DRG 470 ==
LOC: MEDSURG 05-28 00:46
PROVIDERS: Internal Medicine; Physician Assistant; Admitting Provider Student in an Organized Health Care Education/Training Program; PCP Nurse Practitioner Family; Visit Provider Student in an Organized Health Care Education/Training Program
PROC: 8E0Y0CZ Robotic Assisted Procedure of Lower Extremity, Open Approach (ICD-10-PCS; CPT 27447; principal; 2024-05-27 14:45)
PROC: 0QSK04Z Reposition Left Fibula with Internal Fixation Device, Open Approach (ICD-10-PCS; CPT 27828; 2024-05-27 14:45)
DX: M17.12 Unilateral primary osteoarthritis, left knee (principal); E87.1 Hypo-osmolality and hyponatremia; M96.672 Fracture of tibia or fibula following insertion of orthopedic implant, joint prosthesis, or bone plate, left leg; E03.9 Hypothyroidism, unspecified; E11.9 Type 2 diabetes mellitus without complications; I10 Essential (primary) hypertension; Y83.8 Other surgical procedures as the cause of abnormal reaction of the patient, or of later complication, without mention of misadventure at the time of the procedure; Y92.234 Operating room of hospital as the place of occurrence of the external cause; R11.0 Nausea; E86.0 Dehydration; R63.0 Anorexia; Z68.29 Body mass index [BMI] 29.0-29.9, adult; Z79.84 Long term (current) use of oral hypoglycemic drugs
CPT/HCPCS: 36415; 36416; 51702; 73560; 73562; 73564; 76000; 80048; 81001; 81003; 81015; 82962; 84295; 85025; 86850; 86900; 96372; 97110; 97116; 97162; 97166; 97535; C1713; C1776; J0131; J0171; J0360; J1100; J1170; J1815; J1885; J2250; J2704; J2795; J3010; J3370; J3490; J7030; J7050; J7120

== ENCOUNTER → 2024-06-11 14:25 | Outpatient (BNVA) | payer MEDICARE, OTHER, SELFPAY | PROVIDERS: PCP Nurse Practitioner Family; Visit Provider Student in an Organized Health Care Education/Training Program | DX: Z96.652 Presence of left artificial knee joint (principal) | CPT/HCPCS: 73560; 73565 ==

== ENCOUNTER → 2024-06-25 12:58 | Outpatient (BNVA) | payer MEDICARE, OTHER, SELFPAY | PROVIDERS: PCP Nurse Practitioner Family; Visit Provider Student in an Organized Health Care Education/Training Program | DX: Z96.652 Presence of left artificial knee joint (principal); S82.102D Unspecified fracture of upper end of left tibia, subsequent encounter for closed fracture with routine healing; X58.XXXD Exposure to other specified factors, subsequent encounter | CPT/HCPCS: 73560; 73565; 99024 ==

== ENCOUNTER 2024-07-03 13:31 | Outpatient (RCR) | payer MEDICARE, SELFPAY | END 2024-07-18 23:59 | disposition home or self-care (01) | LOC: SPT 13:31 | PROVIDERS: PCP Nurse Practitioner Family; Visit Provider Student in an Organized Health Care Education/Training Program | DX: Z47.1 Aftercare following joint replacement surgery (principal); Z96.652 Presence of left artificial knee joint | CPT/HCPCS: 97110; 97161 ==

== ENCOUNTER → 2024-07-09 08:24 | Outpatient (BNVA) | payer MEDICARE, SELFPAY | PROVIDERS: PCP Nurse Practitioner Family; Visit Provider Student in an Organized Health Care Education/Training Program | DX: Z96.652 Presence of left artificial knee joint (principal); S82.102D Unspecified fracture of upper end of left tibia, subsequent encounter for closed fracture with routine healing; X58.XXXD Exposure to other specified factors, subsequent encounter | CPT/HCPCS: 73560; 73565; 99024 ==

== ENCOUNTER 2024-07-19 06:00 | Outpatient (RCR) | payer MEDICARE, SELFPAY | END 2024-08-17 23:59 | disposition home or self-care (01) | LOC: SPT 06:00 | PROVIDERS: PCP Nurse Practitioner Family; Visit Provider Student in an Organized Health Care Education/Training Program | DX: Z47.1 Aftercare following joint replacement surgery (principal); Z96.652 Presence of left artificial knee joint | CPT/HCPCS: 97110 ==

== ENCOUNTER → 2024-08-08 15:43 | Outpatient (BNVA) | payer MEDICARE, SELFPAY | PROVIDERS: PCP Nurse Practitioner Family; Visit Provider Student in an Organized Health Care Education/Training Program | DX: T81.41XA Infection following a procedure, superficial incisional surgical site, initial encounter; T84.82XA Fibrosis due to internal orthopedic prosthetic devices, implants and grafts, initial encounter; Y83.8 Other surgical procedures as the cause of abnormal reaction of the patient, or of later complication, without mention of misadventure at the time of the procedure; Y79.2 Prosthetic and other implants, materials and accessory orthopedic devices associated with adverse incidents; R03.0 Elevated blood-pressure reading, without diagnosis of hypertension; Z96.652 Presence of left artificial knee joint | CPT/HCPCS: 73560; 73565; 99214 ==

== ENCOUNTER → 2024-08-09 11:24 | Day surgery (SDC) | payer MEDICARE, OTHER, SELFPAY ==
[2024-08-09] VITALS (24 sets, daily range): BP systolic 125–178; BP diastolic 81–135; PULSE 80–90; RESP 12–23; TEMP 36.1–36.7; O2SAT 16–99; BMI 25.0
[2024-08-09] MEDS: acetaminophen 1,000 MG/100 ML PIGGYBACK 400 MG IV (12:04)
--- NOTE | 2024-08-09 12:05 | ANES.PREANE2 ---
Pre-Anesthetic Assessment Height/Weight: Height 1.52 m Weight 58.06 kg O2 Del Method Room Air 08/09/24 12:00 Operation Date: 08/09/24 13:00 Proposed Procedures p Debridement Lower Extremity(Left) - Cesar Partida DO s knee manipulation under anesthesia(Left) - Cesar Partida DO Familial anesthetic complications: none Was Beta Barrett taken within 24 hours: N/A Was Clonidine taken within 24 hours: N/A Last intake: Intake Last Liquid Date 08/09/24 Last Liquid Time 19:00 Last Solid Date 08/08/24 Last Solid Time 17:00 Social No alcohol and No tobacco Exam alert, oriented x 3, clear to auscultation bilaterally and regular rate & rhythm Airway Mallampati: Class I Dentition: full CV/HEM Hypertension Metabolic Diabetes Mellitus, Hyperlipidemia and Thyroid Disease Anesthetic Plan ASA status: 3 Anesthesia: General Risk of > 500 ml blood loss (7ml/kg in children): No Medications/Allergies Home Medications Medication Instructions Recorded Confirmed Last Taken Type alprazolam 1 mg tablet 1 mg PO DAILY PRN Anxiety 10/31/19 08/08/24 08/07/24 History glipizide 10 mg tablet 10 mg PO TID 10/31/19 08/08/24 08/08/24 History metformin 500 mg tablet 1,000 mg PO BID 10/31/19 08/08/24 08/08/24 History chlorzoxazone 500 mg tablet 500 mg PO TID 05/30/23 08/08/24 08/07/24 History levothyroxine 100 mcg tablet 100 mcg PO DAILY 05/21/24 08/08/24 08/08/24 History losartan 50 mg tablet 50 mg PO DAILY 05/21/24 08/08/24 08/08/24 History lovastatin 20 mg tablet 20 mg PO DAILY 05/21/24 08/08/24 08/07/24 History metoprolol succinate 100 mg 100 mg PO DAILY 05/21/24 08/08/24 08/08/24 History tablet,extended release 24 hr aspirin 325 mg tablet 325 mg PO DAILY 06/25/24 08/08/24 08/07/24 History oxycodone 5 mg tablet 5 mg PO Q4H PRN pain 7 days #42 08/08/24 08/08/24 08/08/24 Rx tabs Allergies Allergy/AdvReac Type Severity Reaction Status Date / Time levofloxacin Allergy hives Verified 08/08/24 17:48 naproxen [From Aleve] Allergy hives Verified 08/08/24 17:48 Penicillins Allergy hive Verified 08/08/24 17:48 [facility] Anesthesia Medical History Hyponatremia Fracture of proximal end of left tibia Degenerative joint disease of left knee Hypothyroidism Hypertension Type 2 diabetes mellitus Surgical History S/P total knee arthroplasty History of hysterectomy (~1983) Patient reports was due to an class V Pap. Hx of tubal ligation (~1969) Family History Mother Cancer colon cancer Father Cancer colon cancer Hypertension Thyroid disease Daughter Thyroid disease Social History Smoking and tobacco/nicotine status: never used tobacco/nicotine Alcohol intake: current Alcohol intake frequency: holidays/special occasions only Substance/Drug Use: never Data Anesthesia Cardiac Studies: No Data to Display
[2024-08-09 12:10] LABS: Glucose Point of Care 158 mg/dL (70-110)
--- NOTE | 2024-08-09 12:17 | W.PM.OPSUD ---
Surgery/Procedure H&P Update DATE OF PROCEDURE: August 09, 2024 DATE H&P PERFORMED: 08/08/24 H&P UPDATE INFORMATION: I have reviewed H&P completed within last 30 days, I have examined patient prior to procedure and No changes to prior documentation PREOP DIAGNOSIS: Left knee suture abscess, knee arthrofibrosis PRIMARY INDICATION FOR PROCEDURE: Left knee suture abscess, knee arthrofibrosis PLANNED PROCEDURE: Operation Date: 08/09/24 13:00 Proposed Procedures p Debridement Lower Extremity(Left) - DO fadumo Haskins knee manipulation under anesthesia(Left) - Cesar Partida DO
[2024-08-09] MEDS: sodium chloride 0.9% 1,000 ML 30 ML IV (12:29)
[2024-08-09] MEDS: VANCOMYCIN ADD-Vantage 1,000 MG in 0.9% NaCl ADD-Vantage 250 ML 250 MG IV (12:33)
--- NOTE | 2024-08-09 13:44 | P.BOP_ITS ---
Date of Procedure: 08/09/2024 Surgeon: Cesar Partida DO Marketing Analytics Analyst(s): Felipe Partida PA-C Procedure(s) performed: Left knee irrigation and debridement (6 cm x 4 cm x 0.5 cm) Left knee removal of spitting sutures Left knee manipulation under anesthesia Findings of the procedure(s): Immediate upon cutting through the skin patient was had suture fragmenting and spitting right underneath there was localized subcutaneous necrotic tissue. Deep underneath the first subcutaneous layer was no accumulation of abscess I cultured the tissue right at this site there was no deep communication or any violation the extensor mechanism as well as retinaculum was intact with complete closure of the capsule there is no communication anything deep as a result this appeared to be a spitting suture due to its close edges on the patient and her body is rejecting at this level these were subsequently removed all necrotic skin edges were then debrided to healthy skin edges and then was thoroughly irrigated and reapproximated I did undergo a left knee manipulation under anesthesia and she tolerated this well without issues or complications was able to achieve 0-115/120 Estimated blood loss: 5 cc Specimen(s) removed: Cultures were taken of the necrotic skin edge tissue, there was no purulence I did take 2 cultures of both of these aerobic and anaerobic as well as I removed the spitting suture Post-operative diagnosis: Left knee spitting suture(no deep communication or abscess accumulation appreciated) left knee arthrofibrosis status post TKA
--- NOTE | 2024-08-09 13:48 | XR_ITS ---
WS: [id number] Exam: XR knee LT 1-2V [id number] Date/Time of Exam: 08/09/2024 1:49 PM Reason For Exam: s/p left knee NANETTE Comparison 08/08/2024. No obvious acute fracture. LEFT total knee arthroplasty remains in satisfactory position without [place] ge. Splint artifacts obscure parts of the knee. Soft tissues are unremarkable. XR/XR knee LT 1-2V [id number] IMPRESSION: 1. Total LEFT knee arthroplasty remaining in satisfactory alignment. No acute f racture or other significant finding.
--- NOTE | 2024-08-09 13:48 | PM.OP ---
Operative Report Date of procedure: August 09, 2024 Pre-op diagnosis: Left knee suture abscess Left knee arthrofibrosis Post-op diagnosis: Same, [left knee spitting suture, left knee arthrofibrosis status post TKA] Procedure done: Left knee irrigation and debridement (6 cm x 4 cm x 0.5 cm) Left knee removal of spitting sutures Left knee manipulation under anesthesia Implants: None Specimens removed/disposition: Aerobic and anaerobic cultures were taken of the tissue by the spitting suture Surgeon: Cesar Partida DO [employer] Administrator: Felipe Partida PA-C: RIC was necessary for assistance in this case with leg positioning retraction, assistance with debridement and irrigation, assistance with wound closure and dressing application. Anesthesia: General Estimated blood loss: 5 mL 23 minutes IV fluids: 500 mL Urine output: None Complications: None Findings: See operative report narrative Condition: stable Disposition: same day Brief History: Patient is a pleasant 74-year-old female who is status post a left total knee arthroplasty on 05/27/2024. Intraoperatively she did have an in complete fracture of the anterior medial aspect of the tibia this was fixed intraoperatively she had been progressing satisfactory with therapy did have some postoperative knee stiffness. During her therapy it was noted that she did have some redness around a's focal area of her incision she was seen and worked up in the office on 08/08/2024 findings consistent with spitting suture as she has had some already removed given this being by total joint replacement plan was to be aggressive and debriding this wound and removal of the suture as well as to confirm no deep involvement. Since she was still stiff and have arthrofibrosis of given she was going to be taken back to the OR we talked about possibilities for left knee manipulation under anesthesia. At this point time we talked about the ins and outs procedure the risk benefits complication alternatives with surgical nonsurgical treatment options. Through shared decision making she X proceed with surgical intervention for a left knee irrigation debridement with stitch removal, left knee manipulation under anesthesia. She has been started on antibiotics. Proceed to the OR today and consent obtained in preop. Procedure: Patient seen eval in the preoperative holding area. Consent was reviewed and signed with patient correct extremities and subsequently marked. She was then seen evaluated by anesthesia was cleared for surgery she was taken back to the operative suite. She was transported onto the OR table In supine position all bony prominences were well-padded patient was appropriate secured to the bed. Patient had a nonsterile tourniquet applied to the left thigh. Patient subsequently had the left lower extremity prepped and draped in standard orthopedic fashion. Final timeout performed. Patient received appropriate preoperative antibiotics, she had already been having antibiotics given outpatient started yesterday. This point in time I elevated the left lower extremity no Esmarch tourniquet was used tourniquet was insufflated 250 mmHg. This point in time I evaluated the proximal one third of the incision which had erythema noted. There was a small area of spitting suture noted I subsequently made a direct incision extending just above and below this area site. I immediately encountered suture that was right underneath the skin edge with localized necrotic tissue. I made full-thickness flaps directly down to the patella and extensor mechanism. There was no chloe purulent pocket or purulence noted at all. There was necrotic tissue underneath the skin consistent with a spitting suture abscess. This tissue was then subsequently cultured with aerobic and anaerobic cultures x 2. Once this was cultured I then subsequently utilized pickups and identified each strand of the STRATAFIX subcuticular suture as well as subcutaneous suture this was all completely removed to their entirety to the area of absorb suture and absorb suture above and below the previous incision site. Given there was necrotic edges on the skin I utilized a 15 blade to perform excision of the skin and subcutaneous tissue that was necrotic from the spitting sutures. This took it to healthy bleeding skin edges to allow for better healing and approximation. I then at this point in time evaluated deep to this side of the skin. It was noted that there was no necrotic tissue over the extensor mechanism there was no purulence and there was no palpable joint effusion deep. The capsular stitches were visible and were intact. As result this was confirmed of being a superficial spitting suture abscess. At this point in time I then thoroughly debrided entire area of 6cm x 4 cm x 0.5 cm of any devitalized skin and subcutaneous tissue. This was removed with sharp scalpel excision and rongeur. Once satisfied with this I then thoroughly irrigated the wound bed I also soaked the wound bed with diluted Betadine solution this was allowed to sit and soak and then thoroughly once again thoroughly irrigated the entire wound bed. At this point in time tourniquet was deflated and hemostasis was satisfactory. Prior to closure I then subsequently evaluated patient's range of motion she was roughly 5 degrees to 85 degrees. While under sterile technique and prior to her closure I then slowly flexed keeping a short lever arm and had releases of internal crepitus and scar tissue that accommodating for full range of motion of 0-115/120 degrees. The entire extensor mechanism was inspected throughout the entirety of this and remained intact patient had satisfactory manipulation under anesthesia of the left knee obtaining satisfactory range of motion and tolerated this well without issues or complications. At this point time final irrigation performed and then subsequently closed this in layered fashion. Her skin is very thin at baseline and given we had to remove some of the excess skin I elected to use a absorbable Vicryl suture plus for antimicrobial effects this was placed just to the subcutaneous tissue to reapproximate deep and then subsequently interrupted mattress stitches with nylon for the skin I elected to place patient into a ministerio dressing as well as placed in a knee immobilizer just for the initial 1-2 weeks just to protect from tension over the skin area as we did have to reapproximate this area. Patient was then subsequently awake from anesthesia and taken PACU stable condition. Disposition: Patient taken back in stable condition recovering well we will continue to follow her culture she is currently on clindamycin and we will monitor this postoperatively will follow-up in the office in 2 weeks. Patient given knee immobilizer to maintain in place for the next 1 to 2 weeks she is able to weight-bear as tolerate. Patient understands and agrees to current plan. Questions answered.
[2024-08-09] MEDS: HYDROmorphone 1 mg/mL INJ 1 mL 0.25 MG IVP (13:55)
--- NOTE | 2024-08-09 13:59 | PM.PACU ---
PACU note Narrative: Patient is a 74-year-old female that just underwent a left knee manipulation and I&D. Pt transferred to PACU in stable condition. Dressing is dry and knee immobilizer in place. pt is awake and alert. pt can wiggle toes and plantarflex and dorsiflex foot. Distal pulses are palpable toes are warm and well-perfused. Cap refill is normal and under 2 seconds. Sensation to foot is intact. Pain is controlled. Exam: awake Disposition: discharged
[2024-08-09] MEDS: HYDROmorphone 1 mg/mL INJ 1 mL 0.5 MG IVP ×3 (14:10→14:34)
[2024-08-09] MEDS: fentaNYL 50 mcg/mL INJ 2mL IVP (14:43)
[2024-08-09] MEDS: oxyCODONE 5 mg IR Tab/Cap PO (15:37)
--- NOTE | 2024-08-09 16:00 | ANE.PACU2 ---
Inpatient post-anesthesia follow up: Airway intact: Yes Vital signs: Temperature 97.0 F Pulse Rate 85 Respiratory Rate 18 Blood Pressure 125/84 Pulse Oximetry 95 Oxygen Delivery Me thod Room Air Oxygen Flow Rate Fraction of Inspir ed Oxygen Hydration adequate: Yes Nausea and vomiting: No Pain level: 1 Mental status: Baseline
== END | disposition home or self-care (01) ==
PROVIDERS: PCP Nurse Practitioner Family; Visit Provider Student in an Organized Health Care Education/Training Program
PROC: (CPT 11042; principal; 2024-08-09 13:00)
PROC: (CPT 11042; 2024-08-09 13:00)
DX: T81.41XA Infection following a procedure, superficial incisional surgical site, initial encounter (principal); Y82.8 Other medical devices associated with adverse incidents; M24.662 Ankylosis, left knee; Z98.890 Other specified postprocedural states; I10 Essential (primary) hypertension; E11.9 Type 2 diabetes mellitus without complications; E78.5 Hyperlipidemia, unspecified; Z79.84 Long term (current) use of oral hypoglycemic drugs
CPT/HCPCS: 11042; 15851; 27570; 36416; 73560; 82962; 87070; 87075; 87077; 87186; 87205; J0131; J1100; J1171; J2405; J2704; J3010; J3370; J7030; J7050

== ENCOUNTER 2024-08-18 06:30 | Outpatient (RCR) | payer MEDICARE, SELFPAY | END 2024-09-17 23:59 | disposition home or self-care (01) | LOC: SPT 06:30 | PROVIDERS: PCP Nurse Practitioner Family; Visit Provider Student in an Organized Health Care Education/Training Program | DX: Z47.1 Aftercare following joint replacement surgery (principal); Z96.652 Presence of left artificial knee joint | CPT/HCPCS: 97110 ==

== ENCOUNTER → 2024-08-20 14:03 | Outpatient (BNVA) | payer MEDICARE, SELFPAY | PROVIDERS: PCP Nurse Practitioner Family; Visit Provider Student in an Organized Health Care Education/Training Program | DX: T84.82XA Fibrosis due to internal orthopedic prosthetic devices, implants and grafts, initial encounter (principal); Y79.2 Prosthetic and other implants, materials and accessory orthopedic devices associated with adverse incidents; Z96.652 Presence of left artificial knee joint; T81.41XA Infection following a procedure, superficial incisional surgical site, initial encounter; Y83.8 Other surgical procedures as the cause of abnormal reaction of the patient, or of later complication, without mention of misadventure at the time of the procedure | CPT/HCPCS: 73560; 73565; 99024 ==

== ENCOUNTER → 2024-08-27 11:15 | Outpatient (BNVA) | payer MEDICARE, SELFPAY | PROVIDERS: PCP Nurse Practitioner Family; Visit Provider Student in an Organized Health Care Education/Training Program | DX: T84.82XA Fibrosis due to internal orthopedic prosthetic devices, implants and grafts, initial encounter (principal); Z96.652 Presence of left artificial knee joint; T81.41XA Infection following a procedure, superficial incisional surgical site, initial encounter; Y79.2 Prosthetic and other implants, materials and accessory orthopedic devices associated with adverse incidents; Y83.8 Other surgical procedures as the cause of abnormal reaction of the patient, or of later complication, without mention of misadventure at the time of the procedure | CPT/HCPCS: 73560; 73565; 99024 ==

== ENCOUNTER 2024-09-18 06:00 | Outpatient (RCR) | payer MEDICARE, SELFPAY | END 2024-10-18 23:59 | disposition home or self-care (01) | LOC: SPT 06:00 | PROVIDERS: PCP Nurse Practitioner Family; Visit Provider Student in an Organized Health Care Education/Training Program | DX: Z47.1 Aftercare following joint replacement surgery (principal); Z96.652 Presence of left artificial knee joint | CPT/HCPCS: 97110 ==

== ENCOUNTER → 2024-10-10 14:05 | Outpatient (BNVA) | payer MEDICARE, OTHER, SELFPAY | PROVIDERS: PCP Nurse Practitioner Family; Visit Provider Student in an Organized Health Care Education/Training Program | DX: T84.82XA Fibrosis due to internal orthopedic prosthetic devices, implants and grafts, initial encounter (principal); Y79.2 Prosthetic and other implants, materials and accessory orthopedic devices associated with adverse incidents; Z96.652 Presence of left artificial knee joint | CPT/HCPCS: 73560; 73565; 99213 ==

== ENCOUNTER 2024-11-06 14:50 | Outpatient (RCR) | payer MEDICARE, SELFPAY | END 2024-11-15 23:59 | disposition home or self-care (01) | LOC: SPT 14:50 | PROVIDERS: PCP Nurse Practitioner Family; Visit Provider Student in an Organized Health Care Education/Training Program | DX: Z47.1 Aftercare following joint replacement surgery (principal); Z96.652 Presence of left artificial knee joint | CPT/HCPCS: 97110 ==

== ENCOUNTER 2024-11-16 06:30 | Outpatient (RCR) | payer MEDICARE, SELFPAY | END 2024-11-22 07:31 | disposition home or self-care (01) | LOC: SPT 06:30 | PROVIDERS: PCP Nurse Practitioner Family; Visit Provider Student in an Organized Health Care Education/Training Program | DX: Z47.1 Aftercare following joint replacement surgery (principal); Z96.652 Presence of left artificial knee joint | CPT/HCPCS: 97110 ==

== ENCOUNTER → 2025-01-07 15:14 | Outpatient (BNVA) | payer MEDICARE, SELFPAY | PROVIDERS: PCP Nurse Practitioner Family; Visit Provider Student in an Organized Health Care Education/Training Program | DX: T84.82XA Fibrosis due to internal orthopedic prosthetic devices, implants and grafts, initial encounter (principal); Z96.652 Presence of left artificial knee joint; Y79.2 Prosthetic and other implants, materials and accessory orthopedic devices associated with adverse incidents | CPT/HCPCS: 73560; 73565; 99213 ==

== ENCOUNTER 2025-06-26 11:10 | Outpatient (CLI) | payer MEDICARE, OTHER, SELFPAY ==
--- NOTE | 2025-06-26 11:23 | MM_ITS ---
WS: [id number] BILATERAL SCREENING DIGITAL TOMOSYNTHESIS MAMMOGRAM WITH CAD HISTORY: SCREENING COMPARISON: 05/01/2023, 05/12/2021 Bilateral CC and MLO views with tomosynthesis and synthetic mammography submitted. Computer aided detection analyzed. Breast composition: There are scattered areas of fibroglandular density. No suspicious masses, microcalcifications or architectural distortion. Benign calcifications. MM/MM scr BI tomosynthesis [id number] IMPRESSION: BI-RADS: 2 - Benign. FOLLOW UP: 1 Year Follow-up
== END 2025-06-26 11:11 | disposition home or self-care (01) ==
PROVIDERS: PCP Nurse Practitioner Family; Visit Provider Nurse Practitioner Family
DX: Z12.31 Encounter for screening mammogram for malignant neoplasm of breast (principal); R92.323 Mammographic fibroglandular density, bilateral breasts; R92.1 Mammographic calcification found on diagnostic imaging of breast
CPT/HCPCS: 77063; 77067